=== PATIENT | female | born 1965 | race Caucasian/White ===

== ENCOUNTER 2016-07-23 12:48 | Inpatient (IN) | payer OTHER ==
[~2016-07-23] VITALS: Ht 165.1 cm; Wt 62.1 kg
[2016-07-23] VITALS (8 sets, daily range): BP systolic 81–105; BP diastolic 52–64; PULSE 105–134; RESP 16–24; TEMP 98.3–101.3; O2SAT 90–95
[~2016-07-23 12:48] MED LIST: ALPR.25 PO; DEXA4TAB PO; DOCU1CAP39 PO; OXYC-392 PO
[2016-07-23] MEDS ORDERED: SODIUM CHLORIDE 0.9% FLUSH 5 ML FLUSH IVF PRN (13:00)
--- NOTE | 2016-07-23 13:09 | PD ---
HPI Chief Complaint: abdominal pain Time Seen by Provider: 13:04 Travel History International Travel<30 days: No Contact w/Intl Traveler<30days: No History of Present Illness HPI Patient comes emergency Department complaining of abdominal pain that began yesterday. Patient describes pain as crampy like in nature throughout her abdomen. Patient's associated nausea with this but denies any vomiting. Patient is uncertain last time she had a normal bowel movement states she does not remember. Denies any known fevers, chest pain, or shortness of breath. Patient is uncertain the last time she had chemotherapy or radiation. PFSH Past Medical History Cancer: Yes (breast cancer ) Cardiovascular Problems: No Chemotherapy: Yes (On Herceptin until November 2015) Diabetes: No Genitourinary: No Immune Disorder: No Musculoskeletal: No Neurologic: Yes (Admitted 04/29/16 with altered mental status, brain mets.) Psychiatric: No Reproductive: Yes (Breat cancer) Respiratory: No Radiation Therapy: No Thyroid Disease: No Past Surgical History AICD: No Arteriovenous Shunt: No Insulin Pump: No Joint Replacement: No Pacemaker: No Social History Alcohol Use: Yes (occasionally ) Tobacco Use: No Substance Use: No Allergies-Medications (Allergen,Severity, Reaction): Coded Allergies: Penicillin (Verified Allergy, Intermediate, Rash, 06/19/16) Reported Meds & Prescriptions Reported Meds & Active Scripts Active Dok (Docusate Sodium) 100 Mg Cap 100 Mg PO TID PRN Oxycodone (Oxycodone HCl) 5 Mg Tab 5 Mg PO Q8H Dexamethasone 4 Mg Tab 4 Mg PO Q8HR 15 Days Discuss tapering down this medication with your Oncologist. Do not stop without talking to your oncologist. Xanax (Alprazolam) 0.25 Mg Tab 0.25 Mg PO Q8H PRN Review of Systems ROS Limitations: Poor Historian Except as stated in HPI: all other systems reviewed are Neg Physical Exam Exam Limitations: Poor Historian Narrative GENERAL: Well-developed, well nourished, in no acute distress, and non-ill appearing. SKIN: Warm and dry. HEAD: Atraumatic. Normocephalic. EYES: Pupils equal and round. EOMI. No scleral icterus. No injection or drainage. ENT: No nasal bleeding or discharge. Mucous membranes pink and moist. NECK: Trachea midline. Supple. No nuclear rigidity. CARDIOVASCULAR: Tachycardia rate and regular rhythm. No murmur appreciated. RESPIRATORY: No accessory muscle use. No respiratory distress. Clear to auscultation. Breath sounds equal bilaterally. GASTROINTESTINAL: Abdomen soft, non-tender, distended. Hepatic and splenic margins not palpable. Hypoactive bowel sounds 4. No pulsatile mass. MUSCULOSKELETAL: No obvious deformities. No clubbing. No cyanosis. No edema. NEUROLOGICAL: Awake and alert. No obvious cranial nerve deficits. Motor grossly within normal limits. Normal speech. Data Data Last Documented VS Vital Signs Date Time Temp Pulse Resp B/P Pulse Ox O2 Delivery O2 Flow Rate FiO2 07/23/16 13:23 98.3 124 19 95/64 94 Nasal Cannula 2 Orders Complete Blood Count With Diff (07/23/16 12:57) Comprehensive Metabolic Panel (07/23/16 12:57) Lipase (07/23/16 12:57) Prothrombin Time / Inr (Pt) (07/23/16 12:57) Act Partial Throm Time (Ptt) (07/23/16 12:57) Urinalysis - C+S If Indicated (07/23/16 12:57) Ct Abd/Pel W Iv Contrast(Rout) (07/23/16 12:57) Iv Access Insert/Monitor (07/23/16 12:57) Ecg Monitoring (07/23/16 12:57) Oximetry (07/23/16 12:57) Sodium Chloride 0.9% Flush (Ns Flush) (07/23/16 13:00) Electrocardiogram (07/23/16 12:57) Type And Screen (07/23/16 13:00) Lactic Acid (07/23/16 13:00) Ondansetron Inj (Zofran Inj) (07/23/16 13:15) Sodium Chlor 0.9% 1000 Ml Inj (Ns 1000 M (07/23/16 13:15) Pantoprazole Inj (Protonix Inj) (07/23/16 13:15) Pantoprazole Inj (Protonix Inj) (07/23/16 13:15) Sodium Chlor 0.9% 1000 Ml Inj (Ns 1000 M (07/23/16 14:00) Sodium Chlor 0.9% 1000 Ml Inj (Ns 1000 M (07/23/16 14:00) Ckmb (Isoenzyme) Profile (07/23/16 13:54) Troponin I (1/31/17 13:54) Blood Culture (07/23/16 13:54) Potassium Chloride (Kcl) (07/23/16 14:00) C Diff Toxin Pcr (07/23/16 14:18) Metronidazole 500 Mg Inj (Flagyl 500 Mg (07/23/16 14:30) Morphine Inj (Morphine Inj) (07/23/16 15:15) Ondansetron Inj (Zofran Inj) (07/23/16 15:15) Iohexol 350 Inj (Omnipaque 350 Inj) (07/23/16 15:21) Cefepime Inj (Maxipime Inj) (07/23/16 15:42) Azithromycin (Zithromax) (07/23/16 15:42) Admit Order (Ed Use Only) (07/23/16 16:35) Labs Laboratory Tests Test 07/23/16 07/23/16 13:15 15:00 White Blood Count 11.6 TH/MM3 Red Blood Count 4.24 MIL/MM3 Hemoglobin 14.3 GM/DL Hematocrit 41.3 % Mean Corpuscular Volume 97.4 FL Mean Corpuscular Hemoglobin 33.7 PG Mean Corpuscular Hemoglobin 34.6 % Concent Red Cell Distribution Width 22.6 % Platelet Count 146 TH/MM3 Mean Platelet Volume 8.0 FL Neutrophils (%) (Auto) 75.6 % Lymphocytes (%) (Auto) 13.5 % Monocytes (%) (Auto) 10.1 % Eosinophils (%) (Auto) 0.4 % Basophils (%) (Auto) 0.4 % Neutrophils # (Auto) 8.8 TH/MM3 Lymphocytes # (Auto) 1.6 TH/MM3 Monocytes # (Auto) 1.2 TH/MM3 Eosinophils # (Auto) 0.0 TH/MM3 Basophils # (Auto) 0.0 TH/MM3 CBC Comment AUTO DIFF Differential Total Cells 100 Counted Neutrophils % (Manual) 85 % Lymphocytes % 6 % Monocytes % 5 % Neutrophils # (Manual) 10.3 TH/MM3 Myelocytes 4 % Differential Comment FINAL DIFF MANUAL Platelet Estimate LOW Platelet Morphology Comment NORMAL Prothrombin Time 14.0 SEC Prothromb Time International 1.3 RATIO Ratio Activated Partial 27.4 SEC Thromboplast Time Sodium Level 138 MEQ/L Potassium Level 3.0 MEQ/L Chloride Level 104 MEQ/L Carbon Dioxide Level 20.8 MEQ/L Anion Gap 13 MEQ/L Blood Urea Nitrogen 19 MG/DL Creatinine 0.68 MG/DL Estimat Glomerular Filtration 91 ML/MIN Rate Random Glucose 124 MG/DL Lactic Acid Level 2.2 mmol/L Calcium Level 7.7 MG/DL Total Bilirubin 2.0 MG/DL Aspartate Amino Transf 23 U/L (AST/SGOT) Alanine Aminotransferase 29 U/L (ALT/SGPT) Alkaline Phosphatase 65 U/L Total Creatine Kinase 19 U/L Troponin I 0.07 NG/ML Total Protein 5.8 GM/DL Albumin 2.8 GM/DL Lipase 130 U/L Blood Type AB POSITIVE Antibody Screen NEGATIVE Urine Color YELLOW Urine Turbidity HAZY Urine pH 5.5 Urine Specific [place] 1.029 Urine Protein 100 mg/dL Urine Glucose (UA) NEG mg/dL Urine Ketones NEG mg/dL Urine Occult Blood SMALL Urine Nitrite NEG Urine Bilirubin NEG Urine Urobilinogen LESS THAN 2.0 MG/DL Urine Leukocyte Esterase NEG Urine RBC 1 /hpf Urine WBC 2 /hpf Urine Squamous Epithelial <1 /hpf Cells Urine Bacteria RARE /hpf Urine Mucus FEW /lpf Microscopic Urinalysis Comment CULT NOT INDICATED MDM Medical Decision Making Medical Screen Exam Complete: Yes Emergency Medical Condition: Yes Interpretation(s) EKG reviewed by Dr. Willard, shows sinus tachycardia with ventricular rate of 125. No STEMI. Differential Diagnosis Small bowel obstruction, ileus, necrotic bowel, GI bleed, electrolyte abnormality, dehydration, other Narrative Course 1412 patient's mother now at bedside reports patient began complaining of abdominal pain yesterday and started having diarrhea. Mother isn't certain exactly how many episodes of diarrhea the patient had. Mother states patient was able to make it to the toilet for the first 3 episodes of diarrhea, but then became too weak to make it to the bathroom. 1432 patient reassessed found resting in bed in no acute distress. Denies any pain currently. 1505 patient reassess complaining of nausea and worsening abdominal pain. Patient was seen and examined. Laboratory and radiological studies obtained and reviewed. Patient given IV fluid as well as IV antibiotics. Discussed patient with Dr. Willard, who saw and evaluate the patient and is in agreement with plan of care and disposition. Discussed all findings and plan care of patient was agreeable for admission. All questions were answered. Procedures Procedure Narrative Sample was obtained from patient's soiled depends appears melena in color. Stool specimen applied and test interpreted between 1 and 3 minutes of application and the result was positive. Internal Controls: Both positive and negative controls were validated. scrap shear operator was present during this exam. Physician Communication Physician Communication [phone] Mares, who is agreeable to admit the patient. Diagnosis Primary Impression: Sepsis Qualified Code: A41.9 - Sepsis, due to unspecified organism Additional Impressions: Pneumonia Qualified Code: J18.9 - Pneumonia of both lower lobes due to infectious organism GI bleeding Qualified Code: K92.2 - Gastrointestinal hemorrhage, unspecified gastrointestinal hemorrhage type Elevated troponin Hypokalemia Admitting Information Admitting Physician Requests: Admit Condition: Stable Tre De La Cruz Jul 23, 2016 13:09
[2016-07-23] MEDS ORDERED: SODIUM CHLOR 0.9% 1000 ML INJ 1,000 ML IV ONE ×3 (13:15→14:00)
[2016-07-23] MEDS ORDERED: PANTOPRAZOLE INJ 80 MG in SODIUM CHLORIDE 0.9% INJ 35 ML IV ONE (13:15)
[2016-07-23] MEDS ORDERED: ONDANSETRON HCL 4 MG/2 ML VIAL IV PUSH ONE ×2 (13:15→15:15)
[2016-07-23 13:26] LABS: AUTOMATED NEUTROPHIL # 8.8 TH/MM3 (1.8-7.7); BASOPHIL % 0.4 % (0.0-2.0); EOSINOPHIL % 0.4 % (0.0-4.0); HEMATOCRIT 41.3 % (35.0-46.0); LYMPH % 13.5 % (9.0-44.0); LYMPHOCYTE # 1.6 TH/MM3 (1.0-4.8); MEAN CELL VOLUME 97.4 FL (80.0-100.0); MEAN CORPUSCULAR HEMOGLOBIN 33.7 PG (27.0-34.0); MEAN CORPUSCULAR HGB CONC 34.6 % (32.0-36.0); MONO % 10.1 % (0.0-8.0); NEUT % 75.6 % (16.0-70.0); PLATELET COUNT 146 TH/MM3 (150-450); RED BLOOD COUNT 4.24 MIL/MM3 (4.00-5.30); RED CELL DISTRIBUTION WIDTH 22.6 % (11.6-17.2); WHITE BLOOD COUNT 11.6 TH/MM3 (4.0-11.0)
[2016-07-23 13:35] LABS: HEMO FLAGS AUTO DIFF
[2016-07-23 13:37] LABS: APTT (PATIENT) 27.4 SEC (24.3-30.1); INTERNATIONAL NORMALIZED RATIO 1.3 RATIO
[2016-07-23 13:44] LABS: ANION GAP 13 MEQ/L (5-15); AST (GOT) 23 U/L (15-37); BICARBONATE 20.8 MEQ/L (21.0-32.0); BLOOD UREA NITROGEN 19 MG/DL (7-18); CHLORIDE 104 MEQ/L (98-107); GLOMERULAR FILTRATION RATE 91 ML/MIN (>89); SODIUM (NA) 138 MEQ/L (136-145)
[2016-07-23 13:47] LABS: ALKALINE PHOSPHATASE 65 U/L (45-117); ALT (GPT) 29 U/L (10-53)
[2016-07-23] MEDS ORDERED: POTASSIUM CHLORIDE 20 MEQ CONTROLLED RELEASE TAB PO ONE (14:00)
[2016-07-23 14:21] LABS: MYELOCYTES 4 % (0-0); NEUTROPHIL # MANUAL DIFF 10.3 TH/MM3 (1.8-7.7); POLYS (SEG NEUTROPHILS) 85 % (16-70); WBC DIFF SAMPLE 100
[2016-07-23 14:23] LABS: PLATELET ESTIMATE SMEAR LOW (NORMAL); PLATELET MORPHOLOGY NORMAL (NORMAL); SCAN/DIFF FINAL DIFF MANUAL
[2016-07-23] MEDS ORDERED: metroNIDAZOLE 500 MG INJ 100 ML IV ONE (14:30)
[2016-07-23] MEDS ORDERED: MORPHINE SULFATE 4 MG/ML INJ IV PUSH ONE (15:15)
[2016-07-23 15:20] LABS: BACTERIA, URINE RARE /hpf; BLOOD, URINE SMALL (NEG); COMMENT (UR) CULT NOT INDICATED; CULTURE IF INDICATED CULT NOT INDICATED; GLUCOSE,URINE NEG (NEG); KETONE, URINE NEG (NEG); MUCUS URINE FEW /lpf (OCC); NITRITE,URINE NEG (NEG); PH, URINE 5.5 (5.0-8.5); SQUAMOUS EPITHELIAL CELL URINE <1 /hpf (0-5); URINE COLOR YELLOW (YELLW/STRAW)
[2016-07-23] MEDS ORDERED: IOHEXOL 350 MG/ML 10 ML VIAL (for RAD DIAG) IV ONE (15:21)
--- NOTE | 2016-07-23 15:41 | RADRPT ---
EXAM DATE/TIME: 07/23/2016 15:22 [facility] COMPARISON: CT ABDOMEN & PELVIS W CONTRAST, April 30, 2016, 11:02. INDICATIONS : Diffuse abdominal pain with nausea for 1 day; history of breast cancer with metastatic disease to the brain. IV CONTRAST: 98 cc Omnipaque 350 (iohexol) IV ORAL CONTRAST: No oral contrast ingested. RADIATION DOSE: 4.79 CTDIvol (mGy) MEDICAL HISTORY : Carcinoma, breast. Metastatic disease to brain. SURGICAL HISTORY : None. ENCOUNTER: Initial ACUITY: 1 day PAIN SCALE: 5/10 LOCATION: Diffuse abdomen/pelvis TECHNIQUE: Volumetric scanning of the abdomen and pelvis was performed. Using automated exposure control and ad justment of the mA and/or kV according to patient size, radiation dose was kept as low as reasonably achievable to obtain optimal diagnostic quality images. FINDINGS: LOWER LUNGS: Mild bibasilar infiltrates. LIVER: Homogeneous density without lesion. There is no dilation of the biliary tree. No calcified gallston es. SPLEEN: Normal size without lesion. PANCREAS: Within normal limits. KIDNEYS: Normal in size and shape. There is no mass, stone or hydronephrosis. ADRENAL GLANDS: Within normal limits. VASCULAR: There is no aortic aneurysm. BOWEL/MESENTERY: The stomach, small bowel, and colon demonstrate no acute abnormality. There is no free intraperitone al air or fluid. No inflammatory changes. ABDOMINAL WALL: Within normal limits. RETROPERITONEUM: There is no lymphadenopathy. BLADDER: No wall thickening or mass. REPRODUCTIVE: Within normal limits. INGUINAL: There is no lymphadenopathy or hernia. MUSCULOSKELETAL: There continues to be evidence of diffuse bony metastatic disease. Multiple sclerotic metastases are again demonstrated without significant change compared to the prior study. CONCLUSION: 1. Stable diffuse bony metastatic disease. 2. Mild bibasilar infiltrates. 3. Otherwise, unremarkable and stable CT abdomen/pelvis compared to the prior study. John Luu MD on July 23, 2016 at 15:36 Board Certified Radiologist. This report was verified electronically.
[2016-07-23] MEDS ORDERED: AZITHROMYCIN 250 MG TAB PO STA (15:42)
[2016-07-23] MEDS ORDERED: CEFEPIME INJ 2,000 MG in SODIUM CHLORIDE 0.9% INJ 100 ML IV STA (15:42)
[2016-07-23] MEDS: PANTOPRAZOLE INJ 80 MG in SODIUM CHLORIDE 0.9% INJ 100 ML IV SCH (16:52)
--- NOTE | 2016-07-23 17:00 | HHI.HP ---
[facility] No Primary Care Physician Admission Diagnosis sepsis, pneumonia, GI bleeding, metastatic cancer Diagnoses: Chief Complaint: Diarrhea Travel History International Travel<30 Days: No Contact w/Intl Traveler <30 Da: No Traveled to Known Affected Are: No History of Present Illness This is a 51-year-old female with recently diagnosed breast cancer stage IV metastatic to the brain, lungs, liver and to the thoracic and lumbar spine, presenting to the hospital with abdominal pain and diarrhea. Patient is a very poor historian, she cannot remember why she is here. Of note, patient has been getting chemotherapy but she doesn't know when the last time was. Presently, she denies of any abdominal pain. There is also no note of nausea and vomiting. Presently, she is very forgetful, she cannot even remember that she had diarrhea. Discussed with RN, she had 2 episodes of loose watery dark stools while at the emergency department. Review of Systems ROS Limitations: Poor Historian Past Family Social History Past Medical History Stage IV Breast CA Past Surgical History Tonsillectomy Reported Medications Dok (Docusate Sodium) 100 Mg Cap 100 Mg PO TID PRN Oxycodone (Oxycodone HCl) 5 Mg Tab 5 Mg PO Q8H Dexamethasone 4 Mg Tab 4 Mg PO Q8HR 15 Days Discuss tapering down this medication with your Oncologist. Do not stop without talking to your oncologist. Xanax (Alprazolam) 0.25 Mg Tab 0.25 Mg PO Q8H PRN Allergies: Coded Allergies: Penicillin (Verified Allergy, Intermediate, Rash, 06/19/16) Family History cannot be obtained, poor historian Social History No h/o DM or CAD Physical Exam Vital Signs Occasional alcohol. Negative for tobacco or drugs. Physical Exam Not in distress, metabolic, very forgetful, appears sick. PERRL, pale conjunctiva without injection, anicteric Nose without bleeding, airway patent Supple neck, no masses or thyromegaly, trachea midline Tachycardic, regular rhythm, no murmurs. Clear to auscultation and symmetric bilaterally, normal respiratory effort. Normal bowel sounds, soft, non-tender, mildly distended, no guarding. Extremities without clubbing, cyanosis, or edema. No rash of generalized distribution. Skin is warm and dry. Alert, awake, oriented to self but not to time. Moves extremities. Laboratory Laboratory Tests Test 07/23/16 07/23/16 13:15 15:00 White Blood Count 11.6 Red Blood Count 4.24 Hemoglobin 14.3 Hematocrit 41.3 Mean Corpuscular Volume 97.4 Mean Corpuscular Hemoglobin 33.7 Mean Corpuscular Hemoglobin 34.6 Concent Red Cell Distribution Width 22.6 Platelet Count 146 Mean Platelet Volume 8.0 Neutrophils (%) (Auto) 75.6 Lymphocytes (%) (Auto) 13.5 Monocytes (%) (Auto) 10.1 Eosinophils (%) (Auto) 0.4 Basophils (%) (Auto) 0.4 Neutrophils # (Auto) 8.8 Lymphocytes # (Auto) 1.6 Monocytes # (Auto) 1.2 Eosinophils # (Auto) 0.0 Basophils # (Auto) 0.0 CBC Comment AUTO DIFF Differential Total Cells 100 Counted Neutrophils % (Manual) 85 Lymphocytes % 6 Monocytes % 5 Neutrophils # (Manual) 10.3 Myelocytes 4 Differential Comment FINAL DIFF MANUAL Platelet Estimate LOW Platelet Morphology Comment NORMAL Prothrombin Time 14.0 Prothromb Time International 1.3 Ratio Activated Partial 27.4 Thromboplast Time Sodium Level 138 Potassium Level 3.0 Chloride Level 104 Carbon Dioxide Level 20.8 Anion Gap 13 Blood Urea Nitrogen 19 Creatinine 0.68 Estimat Glomerular Filtration 91 Rate Random Glucose 124 Lactic Acid Level 2.2 Calcium Level 7.7 Total Bilirubin 2.0 Aspartate Amino Transf 23 (AST/SGOT) Alanine Aminotransferase 29 (ALT/SGPT) Alkaline Phosphatase 65 Total Creatine Kinase 19 Troponin I 0.07 Total Protein 5.8 Albumin 2.8 Lipase 130 Blood Type AB POSITIVE Antibody Screen NEGATIVE Urine Color YELLOW Urine Turbidity HAZY Urine pH 5.5 Urine Specific [place] 1.029 Urine Protein 100 Urine Glucose (UA) NEG Urine Ketones NEG Urine Occult Blood SMALL Urine Nitrite NEG Urine Bilirubin NEG Urine Urobilinogen LESS THAN 2.0 Urine Leukocyte Esterase NEG Urine RBC 1 Urine WBC 2 Urine Squamous Epithelial <1 Cells Urine Bacteria RARE Urine Mucus FEW Microscopic Urinalysis Comment CULT NOT INDICATED Date/Time Procedure Status Source Growth 07/23/16 14:35 Aerobic Blood Culture Received Blood Peripheral Pending 07/23/16 14:35 Anaerobic Blood Culture Received Blood Peripheral Pending Result Diagram: 07/23/16 1315 07/23/16 1315 Imaging Last Impressions Abdomen/Pelvis CT 07/23/16 1257 Signed Impressions: Service Date/Time: Saturday, July 23, 2016 15:22 - CONCLUSION: 1. Stable diffuse bony metastatic disease. 2. Mild bibasilar infiltrates. 3. Otherwise, unremarkable and stable CT abdomen/pelvis compared to the prior study. John Luu MD Assessment and Plan Assessment and Plan This is a 51-year-old female with history of stage IV breast cancer presenting with abdominal pain and diarrhea Abdominal pain with diarrhea- patient with leukocytosis, also with dark stools, rule out GI bleed and infectious diarrhea. Send stool for culture and C. difficile. CT scan of the abdomen personally reviewed showed diffuse metastatic disease, but unremarkable abdomen otherwise. Mild bibasilar infiltrates. Start Flagyl for now, continue IVF. Occult blood positive. Continue Protonix. Rule out GI bleed-stool occult positive, hemoglobin is stable, monitor for now. You Protonix drip for now. Stage IV breast cancer-metastatic to liver, brain, thoracic and lumbar spine, lungs. Follow-up with oncology as outpatient Mild troponin elevation-troponin is 0.07, EKG personally reviewed showed sinus tachycardia, continue serial troponins and EKG. Patient denies any chest pain Bibasilar infiltrates lower lobes-could be from atelectasis, patient denies any shortness of breath, incentive spirometry, DuoNeb's. DVT prophylaxis: Pharmacological prophylaxis contraindicated until GI bleed is ruled out,SCDs for now Physician Certification 2 Midnight Certification Type: Admission for Inpatient Services Order for Inpatient Services The services are ordered in accordance with Medicare regulations or non- Medicare payer requirements, as applicable. In the case of services not specified as inpatient-only, they are appropriately provided as inpatient services in accordance with the 2-midnight benchmark. Estimated LOS (days): 2 days is the estimated time the patient will need to remain in the hospital, assuming treatment plan goals are met and no additional complications. Post-Hospital Plan: Home Shahida Mares MD Jul 23, 2016 16:59
[2016-07-23] MEDS ORDERED: [UNRECOGNIZED DRUG - CODE] ×2 (17:16→19:13)
[2016-07-23] MEDS ORDERED: XELO150T PO (17:16)
[2016-07-23] MEDS ORDERED: POTASSIUM CHLORIDE 10 MEQ CONTROLLED RELEASE TAB PO ONE (17:45)
[2016-07-23] MEDS ORDERED: RESP: ALBUTEROL 2.5 MG/IPRATROPIUM 0.5 MG NEB (PRN) NEB (17:45)
[2016-07-23] MEDS: metroNIDAZOLE 500 MG INJ 100 ML IV SCH (18:26)
[2016-07-23] MEDS ORDERED: RANI300T PO (21:44)
[2016-07-23] MEDS ORDERED: RANITIDINE HCL 150 MG TAB PO ONE (22:30)
[2016-07-23] MEDS: FAMOTIDINE 20 MG TAB PO SCH (22:36)
[2016-07-23] MEDS: ACETAMINOPHEN 325 MG TAB PO PRN (22:37)
[2016-07-23] MEDS: ONDANSETRON HCL 4 MG/2 ML VIAL IV PUSH PRN (22:40)
--- NOTE | 2016-07-23 22:47 | RADRPT ---
EXAM DATE/TIME: 07/23/2016 22:22 [facility] COMPARISON: No previous studies available for comparison. INDICATIONS : Fever. MEDICAL HISTORY : Carcinoma, breast. SURGICAL HISTORY : Infusaport. ENCOUNTER: Initial ACUITY: 1 day PAIN SCORE: 0/10 LOCATION: Bilateral chest FINDINGS: A single view of the chest demonstrates a right-sided [id number] entering into the right internal jugular approach with the tip overlying the right atrium. The heart size is within normal limits. The re is widening the superior mediastinum. There is increased density in the perihilar regions bilatera lly. There is elevation of the right hemidiaphragm. CONCLUSION: Increased density in the perihilar regions representing some degree of consolidation or atelectasis. Alex Soto MD on July 23, 2016 at 22:44 Board Certified Radiologist. This report was verified electronically.
[2016-07-23] MEDS: RESP: ALBUTEROL 2.5 MG/IPRATROPIUM 0.5 MG NEB (SCH) NEB (23:54)
[2016-07-24] VITALS (8 sets, daily range): BP systolic 87–102; BP diastolic 46–68; PULSE 91–113; RESP 16–18; TEMP 96.7–101.4; O2SAT 93–96
[2016-07-24] MEDS: metroNIDAZOLE 500 MG INJ 100 ML IV SCH ×3 (02:45→17:28)
[2016-07-24] MEDS: PANTOPRAZOLE INJ 80 MG in SODIUM CHLORIDE 0.9% INJ 100 ML IV SCH ×3 (02:45→19:00)
[2016-07-24 05:56] LABS: AUTOMATED NEUTROPHIL # 4.9 TH/MM3 (1.8-7.7); BASOPHIL % 0.5 % (0.0-2.0); EOSINOPHIL # 0.1 TH/MM3 (0-0.4); EOSINOPHIL % 2.2 % (0.0-4.0); HEMATOCRIT 29.7 % (35.0-46.0); LYMPH % 11.3 % (9.0-44.0); LYMPHOCYTE # 0.7 TH/MM3 (1.0-4.8); MEAN CELL VOLUME 97.7 FL (80.0-100.0); MEAN CORPUSCULAR HEMOGLOBIN 34.7 PG (27.0-34.0); MEAN CORPUSCULAR HGB CONC 35.5 % (32.0-36.0); MONO % 7.5 % (0.0-8.0); NEUT % 78.5 % (16.0-70.0); PLATELET COUNT 105 TH/MM3 (150-450); RED BLOOD COUNT 3.04 MIL/MM3 (4.00-5.30); RED CELL DISTRIBUTION WIDTH 23.6 % (11.6-17.2); WHITE BLOOD COUNT 6.3 TH/MM3 (4.0-11.0)
[2016-07-24 05:57] LABS: HEMO FLAGS AUTO DIFF
[2016-07-24 06:26] LABS: BICARBONATE 20.4 MEQ/L (21.0-32.0); MAGNESIUM 2.2 MG/DL (1.5-2.5); POTASSIUM 3.3 MEQ/L (3.5-5.1)
[2016-07-24 06:35] LABS: C. DIFF EPI 027 PRESUMPTIVE NEGATIVE (NEGATIVE); C. DIFF TOXIN PCR NEGATIVE (NEGATIVE)
[2016-07-24 06:44] LABS: CALCIUM-PROTEIN CORRECTED 7.7 MG/DL (8.5-10.1)
[2016-07-24 07:22] LABS: BANDS 1 % (0-6); EOSINOPHILS 2 % (0-4); METAMYELOCYTES 1 % (0-1); NEUTROPHIL # MANUAL DIFF 5.4 TH/MM3 (1.8-7.7); POLYS (SEG NEUTROPHILS) 83 % (16-70); WBC DIFF SAMPLE 100
[2016-07-24 07:23] LABS: KERATOCYTES OCC (NORMAL); PLATELET ESTIMATE SMEAR LOW (NORMAL); PLATELET MORPHOLOGY NORMAL (NORMAL); SCAN/DIFF FINAL DIFF MANUAL
[2016-07-24] MEDS: RESP: ALBUTEROL 2.5 MG/IPRATROPIUM 0.5 MG NEB (SCH) NEB ×3 (07:34→23:35)
[2016-07-24] MEDS: FAMOTIDINE 20 MG TAB PO SCH ×2 (09:04→22:46)
--- NOTE | 2016-07-24 10:47 | HHI.PR ---
Subjective Remarks f/u sepsis still with diarrhea x2 watery today, non-bloody, denies chest pain/sob/cough/ abdominal pain, no fever, patient is a poor historian Objective Vitals Vital Signs Date Time Temp Pulse Resp B/P Pulse Ox O2 Delivery O2 Flow Rate FiO2 07/24/16 09:33 105 07/24/16 09:12 98.1 113 16 87/46 95 07/24/16 04:00 96.7 91 16 98/68 96 07/23/16 23:55 92 Nasal Cannula 3.00 07/23/16 22:30 105 07/23/16 22:00 101.3 105 16 91/57 91 07/23/16 19:14 99.7 111 24 105/55 90 Nasal Cannula 4 07/23/16 18:28 111 81/52 07/23/16 17:16 108 18 86/54 95 Nasal Cannula 2 07/23/16 13:23 98.3 124 19 95/64 94 Nasal Cannula 2 07/23/16 13:06 98.3 134 21 104/53 92 I/O 07/23/16 07/23/16 07/23/16 07/24/16 07/24/16 07/24/16 07:00 15:00 23:00 07:00 15:00 23:00 Output Total 200 ml Balance -200 ml Output Urine Total 200 ml # Voids 2 1 Result Diagram: 07/24/16 0400 07/24/16 0400 Objective Remarks Not in distress, very forgetful, appears sick. PERRL, pale conjunctiva without injection, anicteric Nose without bleeding, airway patent Supple neck, no masses or thyromegaly, trachea midline Tachycardic, regular rhythm, no murmurs. Clear to auscultation and symmetric bilaterally, normal respiratory effort. Normal bowel sounds, soft, non-tender, mildly distended, no guarding. Extremities without clubbing, cyanosis, or edema. No rash of generalized distribution. Skin is warm and dry. Alert, awake, oriented to self but not to time. Moves extremities. A/P Assessment and Plan This is a 51-year-old female with history of stage IV breast cancer presenting with abdominal pain and diarrhea Abdominal pain with diarrhea - patient with leukocytosis but better, also with dark stools, rule out GI bleed and infectious diarrhea. CT scan of the abdomen personally reviewed showed diffuse metastatic disease, but unremarkable abdomen otherwise. Mild bibasilar infiltrates. Cont Flagyl for now, continue IVF. Occult blood positive. Continue Protonix. F/u stool studies and C diff assay. Rule out GI bleed-stool occult positive, hemoglobin decreased, monitor for now. Continue Protonix drip for now. Check H/H q12 Stage IV breast cancer-metastatic to liver, brain, thoracic and lumbar spine, lungs. Consult Oncology specially for prognosis. Mild troponin elevation-troponin is 0.07, EKG personally reviewed showed sinus tachycardia, Trop flat and has normalized. Patient denies any chest pain Bibasilar infiltrates lower lobes-could be from atelectasis, patient denies any shortness of breath, incentive spirometry, DuoNeb's. Hypocalcemia-replaced Hypokalemia-replaced DVT prophylaxis: Pharmacological prophylaxis contraindicated until GI bleed is ruled out,SCDs for now Discussed extensively with the patient's sister Zunilda, who sort of a greetings insinuated that patient should have a DNR/DNI order. I then spoke to the next of kin Irvin [phone], he is coming on Friday and would be willing to Dr. palliative care. He agreed the patient should be DNR/DNI at this point. He believes that she has suffered enough and agreed with Zunilda that patient has suffered enough and would not want to be resuscitated but he wants to continue to be aggressive with care for now until talking with the palliative care team on Friday DNR/DNI Discussed with RN I spent 35 minutes [id number] with the patient or on the brooke discussing the patient's disposition, prognosis and plan of care with his/her caregivers. Over half of time spent was devoted to counseling the patient regarding placement--- and coordinating care with caregivers and case management. Shahida Mares MD Jul 24, 2016 10:47
[2016-07-24] MEDS ORDERED: SODIUM CHLOR 0.9% 250 ML INJ 250 ML IV STA (10:51)
[2016-07-24] MEDS ORDERED: CALCIUM GLUCONATE INJ 1 GM in SODIUM CHLORIDE 0.9% INJ 100 ML IV ONE (11:00)
[2016-07-24] MEDS ORDERED: POTASSIUM CL 40 MEQ/30 ML LIQ UDC PO ONE (11:00)
[2016-07-24] MEDS: ACETAMINOPHEN 325 MG TAB PO PRN (13:13)
[2016-07-24] MEDS: SODIUM CHLOR 0.9% 1000 ML INJ 1,000 ML IV SCH (13:16)
[2016-07-24 15:31] LABS: REVIEW FLAG FINAL
--- NOTE | 2016-07-24 15:54 | EKG ---
Date Performed: 07/24/2016 Time Performed: 05:28:08 PTAGE: 51 years EKG: Sinus rhythm MODERATE INTRAVENTRICULAR CONDUCTION DELAY NONSPECIFIC T-WAVE ABNORMALITY Compared to prior tracing no significant change BORDERLINE ECG PREVIOUS TRACING : 07/23/2016 18.34 DOCTOR: Alberto Romero Interpretating Date/Time 07/24/2016 15:53:16
--- NOTE | 2016-07-24 15:54 | EKG ---
Date Performed: 07/23/2016 Time Performed: 18:34:57 PTAGE: 51 years EKG: SINUS TACHYCARDIA MODERATE INTRAVENTRICULAR CONDUCTION DELAY ST DEVIATION AND MODERATE T-WA VE ABNORMALITY, CONSIDER LATERAL ISCHEMIA Compared to prior tracing no significant change ABNORMAL EC G INTERPRETATION BASED ON A DEFAULT AGE OF 40 YEARS PREVIOUS TRACING : 07/23/2016 13.52 DOCTOR: Alberto Romero Interpretating Date/Time 07/24/2016 15:53:41
--- NOTE | 2016-07-24 15:54 | EKG ---
Date Performed: 07/23/2016 Time Performed: 23:27:22 PTAGE: 51 years EKG: SINUS TACHYCARDIA MODERATE INTRAVENTRICULAR CONDUCTION DELAY MODERATE T-WAVE ABNORMALITY, C ONSIDER LATERAL ISCHEMIA Compared to prior tracing no significant change ABNORMAL ECG PREVIOUS TRACING : 07/23/2016 18.34 DOCTOR: Alberto Romero Interpretating Date/Time 07/24/2016 15:53:33
--- NOTE | 2016-07-24 15:55 | EKG ---
Date Performed: 07/23/2016 Time Performed: 13:52:18 PTAGE: 51 years EKG: SINUS TACHYCARDIA MODERATE INTRAVENTRICULAR CONDUCTION DELAY ST DEVIATION AND MODERATE T-WA VE ABNORMALITY, CONSIDER LATERAL ISCHEMIA Compared to prior tracing no significant change ABNORMAL EC G INTERPRETATION BASED ON A DEFAULT AGE OF 40 YEARS NO PREVIOUS TRACING DOCTOR: Alberto Romero Interpretating Date/Time 07/24/2016 15:53:49
[2016-07-24 21:10] LABS: MEAN CORPUSCULAR HGB CONC 36.5 % (32.0-36.0)
[2016-07-24] MEDS: CALCIUM CARBONATE 500 MG CHEWABLE TAB CHEW SCH (22:46)
[2016-07-25] VITALS (8 sets, daily range): BP systolic 92–117; BP diastolic 50–72; PULSE 84–99; RESP 16–24; TEMP 96.9–100.1; O2SAT 90–98
[2016-07-25] MEDS: ONDANSETRON HCL 4 MG/2 ML VIAL IV PUSH PRN (01:34)
[2016-07-25] MEDS: metroNIDAZOLE 500 MG INJ 100 ML IV SCH ×2 (01:37→11:00)
[2016-07-25] MEDS ORDERED: ACETAMINOPHEN/HYDROcodone 325 MG/5 MG TAB PO ONE (03:15)
[2016-07-25] MEDS: SODIUM CHLOR 0.9% 1000 ML INJ 1,000 ML IV SCH ×3 (06:01→17:00)
[2016-07-25 06:43] LABS: AUTOMATED NEUTROPHIL # 3.7 TH/MM3 (1.8-7.7); BASOPHIL % 0.6 % (0.0-2.0); EOSINOPHIL # 0.1 TH/MM3 (0-0.4); EOSINOPHIL % 2.5 % (0.0-4.0); HEMATOCRIT 24.6 % (35.0-46.0); LYMPH % 10.1 % (9.0-44.0); LYMPHOCYTE # 0.5 TH/MM3 (1.0-4.8); MEAN CELL VOLUME 97.1 FL (80.0-100.0); MEAN CORPUSCULAR HEMOGLOBIN 35.5 PG (27.0-34.0); MONO % 9.7 % (0.0-8.0); NEUT % 77.1 % (16.0-70.0); PLATELET COUNT 108 TH/MM3 (150-450); RED BLOOD COUNT 2.53 MIL/MM3 (4.00-5.30); RED CELL DISTRIBUTION WIDTH 23.9 % (11.6-17.2); WHITE BLOOD COUNT 4.8 TH/MM3 (4.0-11.0)
--- NOTE | 2016-07-25 06:43 | MB ---
cc: EDUAR MARES MD, RUBY ANNE E. M.D. DATE OF CONSULTATION 07/24/2016 DATE OF [address] Mares CHIEF COMPLAINT Dr. Mares requested consultation for Mrs. Staton regarding metastatic HER2/vannesa over expressing breast cancer. HISTORY OF PRESENT ILLNESS Mrs. Staton is a 51-year-old woman well-known patient to Dr. Power Lynch. She was seen in consultation by Dr. Luis Curry on May 03, 2016. She presented with inflammatory breast cancer in August of 2014. Evaluation showed her to have metastatic disease on presentation with bilateral breast adenopathy, liver and bony metastatic disease. She was started on chemotherapy and completed eight cycles which included Herceptin. 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 MRI of the brain from April 29, 2016 showed numerous enhancing intra-axial masses seen in both cerebral hemisphere compatible with metastatic disease. She came under the care of Dr. Matos. She is receiving radiation therapy to the brain. Dr. Matos' follow-up note from May 03 shows completion of the whole brain radiation May 14, 2016. Since completion of radiation. She was placed on Tykerb and Xeloda. She has been looking to reestablish with another medical oncologist since Dr. Lynch leaving [facility] oncology practice. She has not been established with anyone yet. The referral has been placed by Dr. Matos July 03, 2016. It is not clear who was monitoring her symptoms and toxicity related to the oral chemotherapy agents. She presented with diarrhea worsening over the past week. She was becoming more dehydrated and weak even getting up from a sitting position. Her interview took place in the presence of her mother and two friends who have been caring for her at home up. Her is in [place]. They live in the [facility], but keep home also in [place] where her works. Presently, her is in [place] attending to matters. However, she is well cared for by her caregivers. She is well loved and supported. Her history is complemented by her family members as she is quite forgetful and unsure when she answers. REVIEW OF SYSTEMS She is sleepy, but arousable. She understands and answers questions. She denies any vision changes. She has no headache at present. At the time of the consultation, she was pain free. She has had a great deal of pain in the back. The patient staging evaluation was not reviewed, however a CT scan of the abdomen and pelvis shows stable diffuse metastatic disease, mild bibasilar infiltrates. There is no ascites. There is no bowel wall thickening. The C. diff evaluation was negative. She is noted, however, to have a decrease in hemoglobin. Her hemoglobin on admission was 14.3 and decreased down to 9.6. Her platelet count was 141 and decreased to 104. Corrected calcium is decreased at 6.4. She received Denosumab. Potassium is also low. She has no nausea or vomiting. She is uncertain of what she wishes to do at present. PAST MEDICAL HISTORY 1. Inflammatory breast cancer. 2. 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 HER2/vannesa over expressing breast cancer PAST SURGICAL HISTORY 1. Tonsillectomy 2. Port placement PAST SURGICAL HISTORY Father had colon cancer. One brother is healthy. She has no children. She is . Her is currently in [place] attending to [employer]. SOCIAL HISTORY She denies any tobacco, alcohol or illicit drug use. ALLERGIES PENICILLIN CURRENT MEDICATIONS 1. Pepcid 2. Ondansetron p.r.n. 3. Duo nebs 4. Metronidazole PHYSICAL EXAMINATION Temperature max 101.4, heart rate 97.8, heart rate 106, blood pressure 102/58. GENERAL: Mrs. Staton is a well-developed, well-nourished young woman who looks tired. HEAD, EYES, EARS, NOSE, AND THROAT: She has Trinity's appearance. She has alopecia. Her pupils are round and reactive. Oropharynx is dry. NECK: Supple. LUNGS: Clear anteriorly. CARDIOVASCULAR: Exam reveals a tachycardia. ABDOMEN: Distended. Bowel sounds present. EXTREMITIES: Lower extremities with no edema. NEUROLOGIC: Exam is nonfocal. She moves all four extremities. LABS Calcium is 6.4, hemoglobin 9.6 and platelet count 105,000, PTT mildly prolonged at 14.0 seconds. ASSESSMENT/PLAN Mrs. Staton is a 51-year-old woman with metastatic HER2/vannesa over expressing breast cancer. She has progressed on Herceptin containing regimens. She is currently on Xeloda and Tykerb. 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 She has some neurocognitive dysfunction I suspect is related to the radiation, however, she only completed whole brain radiation in April. I am unable to exclude the contribution of metabolic abnormality to the above. We discussed continuing to support her. We will monitor her hemoglobin. Pharmacologic DVT prophylaxis will be placed on hold until her hemoglobin stabilized. There is no overt sign of bleeding. Her abdomen is distended. CT scan is negative for any particular pathology. We discussed holding her chemotherapy both Xeloda and the Tykerb at present until toxicity has resolved and her performance status improves. We will correct the decreased calcium with oral calcium and calcitriol. We will perform Doppler ultrasound of the lower extremity to make sure there is no deep vein thromboses. I am concerned about the tachycardia as a response to the anemia, i.e., bleeding versus venous thromboembolic event. The cytopenias may be related to the chemotherapy. Lastly, after a lengthy discussion, they were agreeable to a consultation with palliative care. Her questions were answered to her satisfaction. MD NELLY Humphrey/STEFANIA /6:04 PM /6:30 AM
[2016-07-25 06:54] LABS: BICARBONATE 20.8 MEQ/L (21.0-32.0)
[2016-07-25 06:56] LABS: HEMO FLAGS AUTO DIFF
[2016-07-25 07:02] LABS: APTT (PATIENT) 28.6 SEC (24.3-30.1); INTERNATIONAL NORMALIZED RATIO 1.3 RATIO; PROTHROMBIN TIME - PATIENT 14.5 SEC (9.8-11.6)
[2016-07-25 07:11] LABS: CALCIUM-PROTEIN CORRECTED 7.6 MG/DL (8.5-10.1)
[2016-07-25 07:19] LABS: POTASSIUM 2.9 MEQ/L (3.5-5.1)
[2016-07-25] MEDS: CALCIUM CARBONATE 500 MG CHEWABLE TAB CHEW SCH ×2 (08:04→21:31)
[2016-07-25] MEDS: FAMOTIDINE 20 MG TAB PO SCH ×2 (08:04→21:31)
[2016-07-25] MEDS: PANTOPRAZOLE INJ 80 MG in SODIUM CHLORIDE 0.9% INJ 100 ML IV SCH ×2 (08:07→15:15)
[2016-07-25 08:15] LABS: BANDS 4 % (0-6); EOSINOPHILS 1 % (0-4); METAMYELOCYTES 2 % (0-1); MYELOCYTES 1 % (0-0); NEUTROPHIL # MANUAL DIFF 3.9 TH/MM3 (1.8-7.7); PLATELET ESTIMATE SMEAR LOW (NORMAL); PLATELET MORPHOLOGY NORMAL (NORMAL); POLYS (SEG NEUTROPHILS) 74 % (16-70); SCAN/DIFF FINAL DIFF MANUAL; WBC DIFF SAMPLE 100
[2016-07-25] MEDS ORDERED: POTASSIUM CHLOR 40 MEQ PREMIX 100 ML IV ONE (08:15)
[2016-07-25] MEDS: RESP: ALBUTEROL 2.5 MG/IPRATROPIUM 0.5 MG NEB (SCH) NEB ×2 (09:03→16:02)
--- NOTE | 2016-07-25 09:33 | PD.ONC.PN ---
Subjective Subjective Remarks Tmax 99.4 overnight. Pt resting in bed getting IV placed by vascular team. When asked how she is doing she states "I don't know." However she denies pain, SOB or fatigue. She answers questions with simple yes/no. Per RN she continues to have diarrhea. Objective Data Date Time Temp Pulse Resp B/P Pulse Ox O2 Delivery O2 Flow Rate FiO2 07/25/16 09:00 98 Nasal Cannula 3.00 07/25/16 08:35 97.8 84 16 117/64 94 07/25/16 05:30 99.4 92 16 92/53 93 07/25/16 00:45 97.3 99 16 97/50 93 07/24/16 21:00 98.5 98 16 92/56 93 07/24/16 16:00 97.8 106 16 102/58 96 07/24/16 15:21 95 Nasal Cannula 3.00 07/24/16 12:00 101.4 106 18 98/58 94 07/24/16 09:33 105 07/25/16 07/25/16 07/25/16 07:00 15:00 23:00 Intake Total 1417 ml Output Total 300 ml Balance 1117 ml Result Diagram: 07/25/16 0500 07/25/16 0500 Laboratory Results Laboratory Tests Test 07/24/16 07/25/16 15:03 05:00 Hemoglobin 9.6 GM/DL 9.0 GM/DL Hematocrit 27.0 % 24.6 % White Blood Count 4.8 TH/MM3 Red Blood Count 2.53 MIL/MM3 Mean Corpuscular Volume 97.1 FL Mean Corpuscular Hemoglobin 35.5 PG Mean Corpuscular Hemoglobin 36.5 % Concent Red Cell Distribution Width 23.9 % Platelet Count 108 TH/MM3 Mean Platelet Volume 7.9 FL Neutrophils (%) (Auto) 77.1 % Lymphocytes (%) (Auto) 10.1 % Monocytes (%) (Auto) 9.7 % Eosinophils (%) (Auto) 2.5 % Basophils (%) (Auto) 0.6 % Neutrophils # (Auto) 3.7 TH/MM3 Lymphocytes # (Auto) 0.5 TH/MM3 Monocytes # (Auto) 0.5 TH/MM3 Eosinophils # (Auto) 0.1 TH/MM3 Basophils # (Auto) 0.0 TH/MM3 CBC Comment AUTO DIFF Differential Total Cells 100 Counted Neutrophils % (Manual) 74 % Band Neutrophils % 4 % Lymphocytes % 7 % Monocytes % 11 % Eosinophils % 1 % Neutrophils # (Manual) 3.9 TH/MM3 Metamyelocytes 2 % Myelocytes 1 % Differential Comment FINAL DIFF MANUAL Platelet Estimate LOW Platelet Morphology Comment NORMAL Prothrombin Time 14.5 SEC Prothromb Time International 1.3 RATIO Ratio Activated Partial 28.6 SEC Thromboplast Time Fibrinogen 302 mg/dL Sodium Level 143 MEQ/L Potassium Level 2.9 MEQ/L Chloride Level 113 MEQ/L Carbon Dioxide Level 20.8 MEQ/L Anion Gap 9 MEQ/L Blood Urea Nitrogen 2 MG/DL Creatinine 0.23 MG/DL Estimat Glomerular Filtration 316 ML/MIN Rate Random Glucose 89 MG/DL Calcium Level 6.2 MG/DL Protein Corrected Calcium 7.6 MG/DL Total Protein 4.3 GM/DL Culture Results Microbiology Date/Time Procedure Status Source Growth 07/23/16 14:00 Aerobic Blood Culture - Preliminary Resulted Blood Peripheral NO GROWTH IN 1 DAY 07/23/16 14:00 Anaerobic Blood Culture - Preliminary Resulted Blood Peripheral NO GROWTH IN 1 DAY 07/23/16 14:35 Aerobic Blood Culture - Preliminary Resulted Blood Peripheral NO GROWTH IN 1 DAY 07/23/16 14:35 Anaerobic Blood Culture - Preliminary Resulted Blood Peripheral NO GROWTH IN 1 DAY 07/24/16 04:00 Rotavirus Antigen - Final Complete Stool Stool NEGATIVE - ROTAVIRUS ANTIGEN IS ABSEN... 07/24/16 04:00 - Final Complete Stool Stool NO ENTERIC PATHOGENS DETECTED BY PCR... 07/24/16 04:00 Cyclospora Exam Resulted Stool Stool Pending 07/24/16 04:00 Cryptosporidium Exam Resulted Stool Stool Pending 07/24/16 04:00 Stool Pus (ANDREA) - Final Resulted Stool Stool RARE WBC 07/24/16 04:00 Giardia Antigen (ANDREA) Resulted Stool Stool Pending Imaging Studies Last Impressions Abdomen/Pelvis CT 07/23/16 1257 Signed Impressions: Service Date/Time: Saturday, July 23, 2016 15:22 - CONCLUSION: 1. Stable diffuse bony metastatic disease. 2. Mild bibasilar infiltrates. 3. Otherwise, unremarkable and stable CT abdomen/pelvis compared to the prior study. John Luu MD Chest X-Ray 07/23/16 0000 Signed Impressions: Service Date/Time: Saturday, July 23, 2016 22:22 - CONCLUSION: Increased density in the perihilar regions representing some degree of consolidation or atelectasis. Alex Soto MD Administered Medications Medications (Trade) Dose Ordered Sig/Harsha Route PRN Reason Start Time Stop Time Status Last Admin Dose Admin Pantoprazole Sodium 80 mg/ Sodium Chloride 100 ml @ 10 mls/hr Q10H IV 07/23/16 13:15 07/25/16 08:07 Metronidazole (Flagyl 500 Mg Inj) 100 ml @ 100 mls/hr Q8H IV 07/23/16 17:45 07/25/16 01:37 Famotidine (Pepcid) 20 mg Q12HR PO 07/23/16 22:30 07/25/16 08:04 Ondansetron HCl (Zofran Inj) 4 mg Q6HR PRN IV PUSH nausea 07/23/16 22:30 07/25/16 01:34 Acetaminophen 650 mg 650 mg Q4H PRN PO fever >101 07/23/16 22:30 07/24/16 13:13 Sodium Chloride (NS 1000 ml Inj) 1,000 ml @ 100 mls/hr Q10H IV 07/24/16 11:00 07/25/16 06:01 Calcium Carbonate (Tums Chew) 500 mg Q12HR CHEW 07/24/16 21:00 07/25/16 08:04 Objective Remarks GENERAL: Chronically ill appearing female, lying in bed in no distress. SKIN: Warm and dry. Port in place to R chest. HEAD: Normocephalic. + Alopecia. EYES: No injection or drainage. NECK: Supple, trachea midline. LYMPHATIC: No adenopathy. CARDIOVASCULAR: Regular rate and rhythm without murmurs. RESPIRATORY: Breath sounds equal bilaterally. No accessory muscle use. GASTROINTESTINAL: Abdomen soft, non-tender, nondistended. EXTREMITIES: Generalized edema. NEUROLOGICAL: Awake and alert. Moving all extremities. PSYCHIATRIC: Flat affect. Assessment/Plan Problem List: (1) Metastatic breast cancer Status: Chronic Plan: -- Hold chemotherapy for now until toxicities resolve. -- Monitor labs, electrolytes -- Await results of BLE US. Hx/Workup: She was diagnosed with inflammatory breast cancer 15 unfortunately on presentation this was also noted metastatic with bilateral breast adenopathy , liver and bony metastasis. She completed 8 cycles of chemotherapy with Herceptin. 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 MRI brain showed numerous enhancing intra-axial masses seen in both cerebral hemispheres compatible with metastatic disease. She completed whole brain radiation on May 14, 2016. She has since been taking Tykerb and Xeloda. She has been having some toxicity related to these meds and has not been able to followup with anyone since the [facility] oncology practice has closed. Assessment 51 y/o female with a history of metastatic breast cancer who presents to the ER with c/o abdominal pain. Plan 1. Monitor CBC, electrolytes 2. Give 40 meq's K+ IV today to replace a level of 2.9. 3. Hold chemotherapy for now until toxicities resolve. 4. Await results of BLE US. 5. Supportive care. Attending Statement The exam, history, and the medical decision-making described in the above note were completed with the assistance of the mid-level provider. I reviewed and agree with the findings presented. I attest that I had a [id number] encounter with the patient on the same day, and personally performed and documented my assessment and findings in the medical record. Pt seen and examined. Having US of legs. Conversing but seems uncertain, states honestly that she can't remember. No acute complaints. Continue support. Milli Krueger Jul 25, 2016 09:33 Leticia Figueroa MD Jul 25, 2016 18:02
--- NOTE | 2016-07-25 10:05 | RADRPT ---
EXAM DATE/TIME: 07/25/2016 08:09 [facility] COMPARISON: No previous studies available for comparison. EXTERNAL COMPARISON : [facility], US LEG, BILATERAL VENOUS DOPPLER, March 15, 2015 INDICATIONS : Tachycardia, thrombocytopenia rule out DVT. MEDICAL HISTORY : Carcinoma, breast. Hypertension. Brain mets. Altered mental status. Depression. Anxiety. SURGICAL HISTORY : Tonsillectomy. Chemotherapy. ENCOUNTER: Initial ACUITY: 1 day PAIN SCORE: 0/10 LOCATION: Bilateral leg. TECHNIQUE: Venous ultrasound of the left and right leg was performed from the inguinal ligament to the proximal calf. Real-time, color Doppler and spectral tracing, compression and augmentation techniques were us ed. FINDINGS: RIGHT LEG: There is normal compressibility of the deep venous system from the inguinal region to the proximal ca lf. No echogenic clot is seen in the lumen of the common femoral, femoral, popliteal, and posterior tibial veins. There is a normal response of the venous system to proximal and distal augmentation an d respiration. LEFT LEG: There is normal compressibility of the deep venous system from the inguinal region to the proximal ca lf. No echogenic clot is seen in the lumen of the common femoral, femoral, popliteal, and posterior tibial veins. There is a normal response of the venous system to proximal and distal augmentation an d respiration. CONCLUSION: No DVT in either lower extremity Evangelist Baldwin MD on July 25, 2016 at 10:04 Board Certified Radiologist. This report was verified electronically.
--- NOTE | 2016-07-25 10:47 | PD.CONS ---
Consult Service Palliative Care Consult Requested By Dr. Figueroa . Primary Care Physician Keke Michaels MD . Reason for Consultation a. To assist with evaluation and management of symptoms including: Pain , Encephalopathy b. To assist medical decision maker(s) with: better understanding of current medical conditions; weighing benefits/burdens of medical treatment options; making medical treatment decisions. , HPI History of Present Illness This 51-year-old female was diagnosed with breast cancer in August 2014, and had disease metastatic to lymph nodes, bone, and kidneys at that time. This was found to be HER-2/vannesa overexpressing breast cancer, and she underwent chemotherapy including Herceptin. The says he was told that she was " in remission for a year" but then developed neurologic symptoms in April 2016 and was found to have multiple brain metastases. She then underwent whole brain radiation, completing that on 05/14/16. She followed up with her oncologist Dr. Lynch through the end of May, but then was to be referred to a new oncologist due to insurance changes but had never followed up. She had remained on some oral chemotherapeutic agents, and had gradually been getting weaker. Over the few days prior to admission, she seemed to have more confusion, and continued to lose strength, becoming (according to her close friend Zunilda) nonambulatory in the couple days prior to this admission. She was more confused and was finally brought to the emergency department on 07/23/15, complaining of abdominal pain and a couple days of watery diarrhea. In the emergency department, findings included: * Confusion, weakness * Initial temp 98.3, but later 101.3 * Pulse 124, respirations 19, blood pressure 95/69, oxygen saturation 94% on 2 L * White count 11.6, hemoglobin 14.3 * Sodium 138, creatinine 0.68, albumin 2.8 * Lactic acid 2.2 * The diarrhea was found to be Hemoccult positive * Chest x-ray consistent with bilateral infiltrates * Abdomen/pelvis CT scan revealed the bony metastases in the spine but no other obvious abnormalities The patient's tells me that the patient had an MRI done of the brain a couple weeks ago, and I have obtained that report from radiation oncology: MRI brain, 07/10/16: "Multiple enhancing masses throughout both cerebral and cerebellar hemispheres consistent with metastatic disease. The largest lesion on the right is within the thalamus measuring 1.7 x 1.3 cm, crossing the midline. The largest lesion on the left involves the occipital lobe, measuring 1.6 x 1.4 cm. There is associated edema with the lesions, mild. No midline shift." The patient was admitted, cultures were obtained, and she was started on antibiotics. Up to this point in time, the blood cultures and stool tests have been negative. The patient has denied abdominal pain in the past 24 hours, but remains quite forgetful and confused at times. Oncology Dr. Figueroa saw the patient last evening, and has consulted Palliative Care. The nurse reports that friends and the have made comments about "she has suffered enough, " and Palliative Care will now assist with symptom management and enter in discussions with the family and friends regarding prognosis and the benefits and burdens of the various treatment options. . Function/Cognitive Trajectory The patient has been losing strength over the past few months. She was able to ambulate on her own but with some difficulty getting up out of the recliner chair until the past week or so when she became too weak to ambulate. She has been confused and has no memory for recent events for the past couple months. . Review of Systems ROS Limitations: Clinical Condition, Altered Mental Status Constitutional: COMPLAINS OF: Fever Endocrine: DENIES: Polyuria Eyes: DENIES: Eye inflammation Ears, nose, mouth, throat: DENIES: Epistaxis Respiratory: DENIES: Cough, Shortness of breath Cardiovascular: DENIES: Chest pain Gastrointestinal: COMPLAINS OF: Diarrhea, DENIES: Bloody stools, Constipation Genitourinary: DENIES: Hematuria Musculoskeletal: COMPLAINS OF: Back pain, DENIES: Neck pain Integumentary: DENIES: Rash Hematologic/Lymphatics: DENIES: Lymphadenopathy Immunologic/Allergic: DENIES: Urticaria Neurologic: COMPLAINS OF: Abnormal gait, Headache, DENIES: Localized weakness Psychiatric: COMPLAINS OF: Confusion Past Family Social History Coded Allergies: Penicillin (Verified Allergy, Intermediate, Rash, 06/19/16) Past Medical History * Stage IV HER-2/vannesa overexpressing breast cancer, with bone, kidney, lymph node , and brain metastases * Pneumonia, sepsis * Encephalopathy, likely due to medications, sepsis, multiple brain metastases, and recent radiation * Hemoccult-positive diarrheal stool * Chronic back pain due to metastatic disease . Past Surgical History * Tonsillectomy * Port * Breast and lymph node biopsies . Reported Medications She did take oxycodone at home, and she has been on Xeloda and Tykerb for at least the past month. . Current Medications Medications (Trade) Dose Ordered Sig/Harsha Route Start Time Stop Time Status Last Admin IV Flush 2 ml 2 ml UNSCH PRN IVF 07/23/16 13:00 Pantoprazole Sodium 80 mg/ Sodium Chloride 100 ml @ 10 mls/hr Q10H IV 07/23/16 13:15 07/25/16 08:07 (Flagyl 500 Mg Inj) 100 ml @ 100 mls/hr Q8H IV 07/23/16 17:45 07/25/16 01:37 (Pepcid) 20 mg Q12HR PO 07/23/16 22:30 07/25/16 08:04 (Zofran Inj) 4 mg Q6HR PRN IV PUSH 07/23/16 22:30 07/25/16 01:34 Acetaminophen 650 mg 650 mg Q4H PRN PO 07/23/16 22:30 07/24/16 13:13 (NS 1000 ml Inj) 1,000 ml @ 100 mls/hr Q10H IV 07/24/16 11:00 07/25/16 06:01 Calcium Carbonate 500 mg 500 mg Q12HR CHEW 07/24/16 21:00 07/25/16 08:04 (KCl 40 Meq Premix Inj) 100 ml @ 25 mls/hr ONCE ONCE IV 07/25/16 08:15 07/25/16 12:14 Family History Patient's father had colon cancer. . Substance Use Tobacco: None. Alcohol: None. Prescription med abuse: None. Illicits: None. . Psychosocial History The patient was born and raised in [place], but has lived in this area with her for quite some time. They had been returning to [place] because of their construction business, but now she stays here. Her mother and her close friend Zunilad are nearby or living with her. She has been to Irvin for 17 years, and she has no children. Irvin has a son and a daughter. 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 . Spiritual/Cultural Factors The patient has a Yazdanism background, but has been unaffiliated with any uatsdin or clergy in recent years. . Living Will: Never completed Health Care Surrogate: Never completed Durable Power of Gathering Machine Setter: Never completed Family/friends goals: The patient's friend Zunilda said "I think she has suffered enough." The patient's Irvin is considering hospice services, saying that the patient has been telling him the last month or 2 that she did not want to take any more chemotherapy and she just wanted to rest. Irvin and I will be meeting at 10 AM on Friday after he returns from [place] to discuss this further. . Ethical and Legal Issues The patient is consistently confused, and does not have capacity for decision making at this time. Her Irvin is the proxy decision-maker. There are no ethical issues that would impact her care or decision-making at this time. . Physical Exam Vital Signs Date Time Temp Pulse Resp B/P Pulse Ox O2 Delivery O2 Flow Rate FiO2 07/25/16 09:00 98 Nasal Cannula 3.00 07/25/16 08:35 97.8 84 16 117/64 94 07/25/16 05:30 99.4 92 16 92/53 93 07/25/16 00:45 97.3 99 16 97/50 93 07/24/16 21:00 98.5 98 16 92/56 93 07/24/16 16:00 97.8 106 16 102/58 96 07/24/16 15:21 95 Nasal Cannula 3.00 07/24/16 12:00 101.4 106 18 98/58 94 07/24/16 07/25/16 19:00 07:00 Intake Total 2599 ml 1417 ml Output Total 300 ml Balance 2599 ml 1117 ml Intake Oral 480 ml IV Total 2119 ml 1417 ml Output Urine Total 300 ml # Voids 4 # Bowel Movements 4 4 Exam CONSTITUTIONAL/GENERAL: This is a week patient, in no apparent distress. TUBES/LINES/DRAINS: Peripheral IV SKIN: No jaundice, rashes, or lesions. Ecchymoses on upper extremities. No wounds seen anteriorly. Skin temperature appropriate. Not diaphoretic. HEAD: Atraumatic. Normocephalic. Skin changes consistent with radiation. EYES: Pupils equal and round and reactive. Extraocular motions intact. No scleral icterus. No injection or drainage. Fundi not examined. ENT: Hearing grossly normal. Nose without bleeding or purulent drainage. Throat without visible erythema, exudates, masses, or lesions. NECK: Trachea midline. Supple, nontender. No palpable thyroid enlargement or nodularity. CARDIOVASCULAR: Regular rate and rhythm without murmurs, gallops, or rubs. No JVD. Peripheral pulses symmetric. RESPIRATORY/CHEST: Symmetric, unlabored respirations. A few scattered rhonchi bilateral. GASTROINTESTINAL: Abdomen soft, non-tender, nondistended. No hepato-splenomegaly , or palpable masses. No guarding. Bowel sounds present. GENITOURINARY: Without palpable bladder distension. MUSCULOSKELETAL: Extremities without clubbing, cyanosis, or edema. No joint tenderness or effusion noted. No calf tenderness. No mottling or clubbing. LYMPHATICS: No palpable cervical or supraclavicular adenopathy. NEUROLOGICAL: Awake and alert. Her speech is clear, but she is confused, disoriented. Follows simple commands. Moves all 4 extremities. PSYCHIATRIC: No obvious anxiety/depression. no apparent hallucinations or other psychotic thought process. . Diagnostic Tests Laboratory Laboratory Tests Test 07/23/16 07/23/16 07/23/16 07/23/16 13:15 15:00 18:05 19:15 White Blood Count 11.6 TH/MM3 (4.0-11.0) Red Blood Count 4.24 MIL/MM3 (4.00-5.30) Hemoglobin 14.3 GM/DL (11.6-15.3) Hematocrit 41.3 % (35.0-46.0) Mean Corpuscular Volume 97.4 FL (80.0-100.0) Mean Corpuscular Hemoglobin 33.7 PG (27.0-34.0) Mean Corpuscular Hemoglobin 34.6 % Concent (32.0-36.0) Red Cell Distribution Width 22.6 % (11.6-17.2) Platelet Count 146 TH/MM3 (150-450) Mean Platelet Volume 8.0 FL (7.0-11.0) Neutrophils (%) (Auto) 75.6 % (16.0-70.0) Lymphocytes (%) (Auto) 13.5 % (9.0-44.0) Monocytes (%) (Auto) 10.1 % (0.0-8.0) Eosinophils (%) (Auto) 0.4 % (0.0-4.0) Basophils (%) (Auto) 0.4 % (0.0-2.0) Neutrophils # (Auto) 8.8 TH/MM3 (1.8-7.7) Lymphocytes # (Auto) 1.6 TH/MM3 (1.0-4.8) Monocytes # (Auto) 1.2 TH/MM3 (0-0.9) Eosinophils # (Auto) 0.0 TH/MM3 (0-0.4) Basophils # (Auto) 0.0 TH/MM3 (0-0.2) CBC Comment AUTO DIFF Differential Total Cells 100 Counted Neutrophils % (Manual) 85 % (16-70) Lymphocytes % 6 % (9-44) Monocytes % 5 % (0-8) Neutrophils # (Manual) 10.3 TH/MM3 (1.8-7.7) Myelocytes 4 % (0-0) Differential Comment FINAL DIFF MANUAL Platelet Estimate LOW (NORMAL) Platelet Morphology Comment NORMAL (NORMAL) Prothrombin Time 14.0 SEC (9.8-11.6) Prothromb Time International 1.3 RATIO Ratio Activated Partial 27.4 SEC Thromboplast Time (24.3-30.1) Sodium Level 138 MEQ/L (136-145) Potassium Level 3.0 MEQ/L (3.5-5.1) Chloride Level 104 MEQ/L (98-107) Carbon Dioxide Level 20.8 MEQ/L (21.0-32.0) Anion Gap 13 MEQ/L (5-15) Blood Urea Nitrogen 19 MG/DL (7-18) Creatinine 0.68 MG/DL (0.50-1.00) Estimat Glomerular Filtration 91 ML/MIN (>89) Rate Random Glucose 124 MG/DL (74-106) Lactic Acid Level 2.2 mmol/L 0.9 mmol/L (0.4-2.0) (0.4-2.0) Calcium Level 7.7 MG/DL (8.5-10.1) Total Bilirubin 2.0 MG/DL (0.2-1.0) Aspartate Amino Transf 23 U/L (15-37) (AST/SGOT) Alanine Aminotransferase 29 U/L (10-53) (ALT/SGPT) Alkaline Phosphatase 65 U/L (45-117) Total Creatine Kinase 19 U/L (26-192) Troponin I 0.07 NG/ML 0.06 NG/ML (0.02-0.05) (0.02-0.05) Total Protein 5.8 GM/DL (6.4-8.2) Albumin 2.8 GM/DL (3.4-5.0) Lipase 130 U/L (73-393) Blood Type AB POSITIVE Antibody Screen NEGATIVE Urine Color YELLOW (YELLW/STRAW) Urine Turbidity HAZY (CLEAR) Urine pH 5.5 (5.0-8.5) Urine Specific [place] 1.029 (1.002-1.035) Urine Protein 100 mg/dL (NEG-TRACE) Urine Glucose (UA) NEG mg/dL (NEG) Urine Ketones NEG mg/dL (NEG) Urine Occult Blood SMALL (NEG) Urine Nitrite NEG (NEG) Urine Bilirubin NEG (NEG) Urine Urobilinogen LESS THAN 2.0 MG/DL (LESS THAN 2.0) Urine Leukocyte Esterase NEG (NEG) Urine RBC 1 /hpf (0-3) Urine WBC 2 /hpf (0-5) Urine Squamous Epithelial <1 /hpf (0-5) Cells Urine Bacteria RARE /hpf (NONE) Urine Mucus FEW /lpf (OCC) Microscopic Urinalysis Comment CULT NOT INDICATED Test 07/23/16 07/24/16 07/24/16 07/25/16 23:42 04:00 15:03 05:00 Troponin I 0.05 NG/ML (0.02-0.05) White Blood Count 6.3 TH/MM3 4.8 TH/MM3 (4.0-11.0) (4.0-11.0) Red Blood Count 3.04 MIL/MM3 2.53 MIL/MM3 (4.00-5.30) (4.00-5.30) Hemoglobin 10.5 GM/DL 9.6 GM/DL 9.0 GM/DL (11.6-15.3) (11.6-15.3) (11.6-15.3) Hematocrit 29.7 % 27.0 % 24.6 % (35.0-46.0) (35.0-46.0) (35.0-46.0) Mean Corpuscular Volume 97.7 FL 97.1 FL (80.0-100.0) (80.0-100.0) Mean Corpuscular Hemoglobin 34.7 PG 35.5 PG (27.0-34.0) (27.0-34.0) Mean Corpuscular Hemoglobin 35.5 % 36.5 % Concent (32.0-36.0) (32.0-36.0) Red Cell Distribution Width 23.6 % 23.9 % (11.6-17.2) (11.6-17.2) Platelet Count 105 TH/MM3 108 TH/MM3 (150-450) (150-450) Mean Platelet Volume 8.1 FL 7.9 FL (7.0-11.0) (7.0-11.0) Neutrophils (%) (Auto) 78.5 % 77.1 % (16.0-70.0) (16.0-70.0) Lymphocytes (%) (Auto) 11.3 % 10.1 % (9.0-44.0) (9.0-44.0) Monocytes (%) (Auto) 7.5 % (0.0-8.0) 9.7 % (0.0-8.0) Eosinophils (%) (Auto) 2.2 % (0.0-4.0) 2.5 % (0.0-4.0) Basophils (%) (Auto) 0.5 % (0.0-2.0) 0.6 % (0.0-2.0) Neutrophils # (Auto) 4.9 TH/MM3 3.7 TH/MM3 (1.8-7.7) (1.8-7.7) Lymphocytes # (Auto) 0.7 TH/MM3 0.5 TH/MM3 (1.0-4.8) (1.0-4.8) Monocytes # (Auto) 0.5 TH/MM3 0.5 TH/MM3 (0-0.9) (0-0.9) Eosinophils # (Auto) 0.1 TH/MM3 0.1 TH/MM3 (0-0.4) (0-0.4) Basophils # (Auto) 0.0 TH/MM3 0.0 TH/MM3 (0-0.2) (0-0.2) CBC Comment AUTO DIFF AUTO DIFF Differential Total Cells 100 100 Counted Neutrophils % (Manual) 83 % (16-70) 74 % (16-70) Band Neutrophils % 1 % (0-6) 4 % (0-6) Lymphocytes % 8 % (9-44) 7 % (9-44) Monocytes % 5 % (0-8) 11 % (0-8) Eosinophils % 2 % (0-4) 1 % (0-4) Neutrophils # (Manual) 5.4 TH/MM3 3.9 TH/MM3 (1.8-7.7) (1.8-7.7) Metamyelocytes 1 % (0-1) 2 % (0-1) Differential Comment FINAL DIFF FINAL DIFF MANUAL MANUAL Platelet Estimate LOW (NORMAL) LOW (NORMAL) Platelet Morphology Comment NORMAL NORMAL (NORMAL) (NORMAL) Keratocytes OCC (NORMAL) Stool C. difficile Toxin (PCR) NEGATIVE (NEGATIVE) Stl C. difficile Toxin PRESUMPTIVE Epiderm 027 NEGATIVE (NEGATIVE) Sodium Level 144 MEQ/L 143 MEQ/L (136-145) (136-145) Potassium Level 3.3 MEQ/L 2.9 MEQ/L (3.5-5.1) (3.5-5.1) Chloride Level 114 MEQ/L 113 MEQ/L (98-107) (98-107) Carbon Dioxide Level 20.4 MEQ/L 20.8 MEQ/L (21.0-32.0) (21.0-32.0) Anion Gap 10 MEQ/L (5-15) 9 MEQ/L (5-15) Blood Urea Nitrogen 9 MG/DL (7-18) 2 MG/DL (7-18) Creatinine 0.31 MG/DL 0.23 MG/DL (0.50-1.00) (0.50-1.00) Estimat Glomerular Filtration 224 ML/MIN 316 ML/MIN Rate (>89) (>89) Random Glucose 100 MG/DL 89 MG/DL (74-106) (74-106) Calcium Level 6.4 MG/DL 6.2 MG/DL (8.5-10.1) (8.5-10.1) Protein Corrected Calcium 7.7 MG/DL 7.6 MG/DL (8.5-10.1) (8.5-10.1) Magnesium Level 2.2 MG/DL (1.5-2.5) Total Protein 4.5 GM/DL 4.3 GM/DL (6.4-8.2) (6.4-8.2) Myelocytes 1 % (0-0) Prothrombin Time 14.5 SEC (9.8-11.6) Prothromb Time International 1.3 RATIO Ratio Activated Partial 28.6 SEC Thromboplast Time (24.3-30.1) Fibrinogen 302 mg/dL (181-393) Result Diagram: 07/25/16 0500 07/25/16 0500 Microbiology Microbiology Date/Time Procedure Status Source Growth 07/23/16 14:00 Aerobic Blood Culture - Preliminary Resulted Blood Peripheral NO GROWTH IN 1 DAY 07/23/16 14:00 Anaerobic Blood Culture - Preliminary Resulted Blood Peripheral NO GROWTH IN 1 DAY 07/23/16 14:35 Aerobic Blood Culture - Preliminary Resulted Blood Peripheral NO GROWTH IN 1 DAY 07/23/16 14:35 Anaerobic Blood Culture - Preliminary Resulted Blood Peripheral NO GROWTH IN 1 DAY 07/24/16 04:00 Rotavirus Antigen - Final Complete Stool Stool NEGATIVE - ROTAVIRUS ANTIGEN IS ABSEN... 07/24/16 04:00 - Final Complete Stool Stool NO ENTERIC PATHOGENS DETECTED BY PCR... 07/24/16 04:00 Cyclospora Exam Resulted Stool Stool Pending 07/24/16 04:00 Cryptosporidium Exam Resulted Stool Stool Pending 07/24/16 04:00 Stool Pus (ANDREA) - Final Resulted Stool Stool RARE WBC 07/24/16 04:00 Giardia Antigen (ANDREA) Resulted Stool Stool Pending Imaging From [facility]: MRI brain, 07/10/16: "Multiple enhancing masses throughout both cerebral and cerebellar hemispheres consistent with metastatic disease. The largest lesion on the right is within the thalamus measuring 1.7 x 1.3 cm, crossing the midline. The largest lesion on the left involves the occipital lobe, measuring 1.6 x 1.4 cm. There is associated edema with the lesions, mild. No midline shift." . Last Impressions Lower Extremity Ultrasound 07/25/16 0000 Signed Impressions: Service Date/Time: July 08:09 - CONCLUSION: No DVT in either lower extremity Evangelist Baldwin MD Abdomen/Pelvis CT 07/23/16 1257 Signed Impressions: Service Date/Time: Saturday, July 23, 2016 15:22 - CONCLUSION: 1. Stable diffuse bony metastatic disease. 2. Mild bibasilar infiltrates. 3. Otherwise, unremarkable and stable CT abdomen/pelvis compared to the prior study. John Luu MD Chest X-Ray 07/23/16 0000 Signed Impressions: Service Date/Time: Saturday, July 23, 2016 22:22 - CONCLUSION: Increased density in the perihilar regions representing some degree of consolidation or atelectasis. Alex Soto MD Patient/Family Conference Family Conference Time (mins): 39 Family Conference Location: Telephone Issues Discussed: * Palliative care role, purpose, approach * Hospice care role, purpose, approach * Additional medical, psychosocial, and spiritual history * Patients general health, functional status, and cognitive changes in the months leading up to the current hospitalization * Patient/family understanding of the current medical problems * Patient/family understanding of prognosis * Patients goals of care as best understood from advance directives and/or conversations and/or values * Current medical treatment options and benefits/burdens of those options * Likely scenarios comparing ongoing aggressive care with a transition to comfort measures only * Questions answered to the best of my ability * Palliative care contact information provided Both the patients and the patient's close friend Zunilda feel that the time for hospice involvement may be near. . Assessment and Plan Disease Oriented Problem List: (1) stage IV, HER2/vannesa overexpressing breast cancer, with bone, kidney, lymph node, and brain metastases (2) pneumonia, sepsis (3) encephalopathy, likely due to medications, sepsis, multiple brain metastases , and recent radiation (4) chronic back pain due to metastatic disease (5) Hemoccult-positive diarrheal stool (6) anxiety, history of panic attacks Symptom Scale: (1) encephalopathy 0-10 Scale: 5 (persistent confusion, poor memory, poor insight) (2) pain 0-10 Scale: 3 (primarily back pain) (3) anxiety 0-10 Scale: Unable to quantify (intermittent) Pertinent Non-Medical Issues Psychosocial: From [place], for 17 years, no children but 2 stepchildren. Spiritual: Unaffiliated Yazdanism Legal: The patient is consistently confused, and does not have capacity for decision making at this time. Her Irvin is the proxy decision-maker. Ethical issues impacting care: None. . Important Contacts : Irvin [phone] Close friend: Zunilda Dean [phone] . Prognosis The patient is terminal. She has been declining recently, and now has an even more significant setback with pneumonia/sepsis. Her MRI from 07/10/16 confirms persistent/residual brain metastatic disease, and the CT scan on this admission again demonstrates bony metastases area. Certainly she is appropriate for hospice services if the goals transition to a focus on comfort. . Code Status: No Code Plan * DO NOT RESUSCITATE * GOALS: The patient is too confused and forgetful to discuss prognosis and goals of care at this time. The patient's friend Zunilda said "I think she has suffered enough." The patient's Irvin is considering hospice services, saying that the patient has been telling him the last month or 2 that she did not want to take any more chemotherapy and she just wanted to rest. Irvin and I will be meeting at 10 AM on Friday after he returns from [place] to discuss this further. * DECISION-MAKING: The patient is consistently confused, and does not have capacity for decision making at this time. Her Irvin is the proxy decision-maker. * From [facility]: MRI brain, 07/10/16: "Multiple enhancing masses throughout both cerebral and cerebellar hemispheres consistent with metastatic disease. The largest lesion on the right is within the thalamus measuring 1.7 x 1.3 cm, crossing the midline. The largest lesion on the left involves the occipital lobe, measuring 1.6 x 1.4 cm. There is associated edema with the lesions, mild. No midline shift." * SYMPTOMS: Her encephalopathy does not seem to be improving, but her treatment has just begun here the past couple days. Pain seems to be fairly well managed now. No new medication recommendations. * Palliative Care will continue to follow the patient during this hospitalization. * Irvin and I will be meeting at 10 AM on Friday after he returns from [place] to discuss Goals of Care further. . Time Spent Total Floor Time (mins): 78 Face to Face Time (mins): 46 >50% Counseling/Coord of Care: Yes Thank you for the opportunity to participate in the care of Ms. Staton. Attestation To help prompt me to consider important information that might be impacting today's encounter and assessment, information from prior notes written by myself or my colleagues may have been "brought forward" into today's note. My signature on this note, however, is an attestation that I personally performed the exam, history, and/or decision-making noted today, and, unless otherwise indicated, the interactions with patient, family, and staff as well as the review of records all occurred today. I also attest that the listed assessment and stated plan reflect my best clinical judgment today based on the combination of historical information, prior notes, and today's exam/ interactions. When time spent is documented, it refers only to time spent today by the signer, or if indicated, combined time spent today by collaborating physician/nurse practitioner. Jillian Chandler MD Jul 25, 2016 10:47
[2016-07-25] MEDS ORDERED: POTASSIUM CL 40 MEQ/30 ML LIQ UDC PO ONE (15:15)
--- NOTE | 2016-07-25 15:18 | HHI.PR ---
Subjective Remarks Follow-up for pneumonia Patient's shortness of breath about the same, afebrile, feels better today, she has more strength. still very forgetful. Discussed with patient's sister. Objective Vitals Vital Signs Date Time Temp Pulse Resp B/P Pulse Ox O2 Delivery O2 Flow Rate FiO2 07/25/16 13:08 84 07/25/16 12:00 96.9 94 16 109/68 91 07/25/16 09:00 98 Nasal Cannula 3.00 07/25/16 08:35 97.8 84 16 117/64 94 07/25/16 05:30 99.4 92 16 92/53 93 07/25/16 00:45 97.3 99 16 97/50 93 07/24/16 21:00 98.5 98 16 92/56 93 07/24/16 16:00 97.8 106 16 102/58 96 07/24/16 15:21 95 Nasal Cannula 3.00 I/O 07/24/16 07/24/16 07/24/16 07/25/16 07/25/16 07/25/16 07:00 15:00 23:00 07:00 15:00 23:00 Intake Total 2599 ml 1417 ml Output Total 300 ml Balance 2599 ml 1117 ml Intake Oral 480 ml IV Total 2119 ml 1417 ml Output Urine Total 300 ml # Voids 1 4 # Bowel Movements 4 2 2 Result Diagram: 07/25/16 0500 07/25/16 0500 Objective Remarks Not in distress, very forgetful, appears sick. PERRL, pale conjunctiva without injection, anicteric Nose without bleeding, airway patent Supple neck, no masses or thyromegaly, trachea midline Tachycardic, regular rhythm, no murmurs. Clear to auscultation and symmetric bilaterally, normal respiratory effort. Normal bowel sounds, soft, non-tender, mildly distended, no guarding. Extremities without clubbing, cyanosis, or edema. No rash of generalized distribution. Skin is warm and dry. Alert, awake, oriented to self but not to time. Moves extremities. A/P Assessment and Plan This is a 51-year-old female with history of stage IV breast cancer presenting with abdominal pain and diarrhea Abdominal pain with diarrhea - patient with leukocytosis but better, also with dark stools, rule out GI bleed and infectious diarrhea. CT scan of the abdomen personally reviewed showed diffuse metastatic disease, but unremarkable abdomen otherwise. Mild bibasilar infiltrates. Cont Flagyl for now, continue IVF. Occult blood positive. Continue Protonix. F/u stool studies and C diff assay. Start [place] for pain. Rule out GI bleed-stool occult positive, hemoglobin decreased, monitor for now. Continue Protonix drip for now. Check H/H q12 Stage IV breast cancer-metastatic to liver, brain, thoracic and lumbar spine, lungs. Consult Oncology specially for prognosis. Mild troponin elevation-troponin is 0.07, EKG personally reviewed showed sinus tachycardia, Trop flat and has normalized. Patient denies any chest pain Bibasilar infiltrates lower lobes-could be from atelectasis, patient denies any shortness of breath, incentive spirometry, DuoNeb's. Hypocalcemia-replaced Hypokalemia-replaced, recheck BMP tomorrow and magnesium. Hypocalcemia-replace DVT prophylaxis: Pharmacological prophylaxis contraindicated until GI bleed is ruled out,SCDs for now Discussed extensively with the patient's sister Zunilda, who sort of a greetings insinuated that patient should have a DNR/DNI order. I then spoke to the next of kin Irvin [phone], he is coming on Friday and would be willing to . palliative care. He agreed the patient should be DNR/DNI at this point. He believes that she has suffered enough and agreed with Zunilda that patient has suffered enough and would not want to be resuscitated but he wants to continue to be aggressive with care for now until talking with the palliative care team on Friday. Positive care following, to speak with patient' s tomorrow. DNR/DNI Shahida Mares MD Jul 25, 2016 15:18
[2016-07-25] MEDS: POTASSIUM CHLOR 20 MEQ PREMIX 100 ML IV SCH ×2 (16:01→18:14)
[2016-07-25] MEDS: CEFEPIME INJ 1,000 MG in SODIUM CHLORIDE 0.9% INJ 100 ML IV SCH (16:01)
[2016-07-25] MEDS ORDERED: CALCIUM GLUCONATE INJ 1 GM in SODIUM CHLORIDE 0.9% INJ 100 ML IV ONE (17:00)
[2016-07-25] MEDS: ACETAMINOPHEN/HYDROcodone 325 MG/5 MG TAB PO PRN (18:14)
[2016-07-26] VITALS (8 sets, daily range): BP systolic 96–113; BP diastolic 59–80; PULSE 88–114; RESP 16–20; TEMP 97.4–100.3; O2SAT 87–95
[2016-07-26] MEDS: RESP: ALBUTEROL 2.5 MG/IPRATROPIUM 0.5 MG NEB (SCH) NEB ×3 (00:34→16:00)
[2016-07-26 00:35] LABS: HEMATOCRIT 26.7 % (35.0-46.0); REVIEW FLAG FINAL
[2016-07-26] MEDS: PANTOPRAZOLE INJ 80 MG in SODIUM CHLORIDE 0.9% INJ 100 ML IV SCH ×2 (01:35→12:25)
[2016-07-26] MEDS: CEFEPIME INJ 1,000 MG in SODIUM CHLORIDE 0.9% INJ 100 ML IV SCH ×2 (01:36→08:00)
[2016-07-26] MEDS ORDERED: LOPERAMIDE HCL 2 MG CAP PO ONE (02:15)
[2016-07-26] MEDS: SODIUM CHLOR 0.9% 1000 ML INJ 1,000 ML IV SCH ×3 (02:48→22:35)
[2016-07-26] MEDS: ACETAMINOPHEN/HYDROcodone 325 MG/5 MG TAB PO PRN ×2 (03:39→16:54)
[2016-07-26 06:35] LABS: BICARBONATE 22.4 MEQ/L (21.0-32.0); MAGNESIUM 1.9 MG/DL (1.5-2.5); POTASSIUM 3.8 MEQ/L (3.5-5.1)
[2016-07-26 06:50] LABS: AUTOMATED NEUTROPHIL # 4.6 TH/MM3 (1.8-7.7); BASOPHIL % 0.5 % (0.0-2.0); EOSINOPHIL # 0.1 TH/MM3 (0-0.4); EOSINOPHIL % 2.2 % (0.0-4.0); HEMATOCRIT 27.3 % (35.0-46.0); LYMPHOCYTE # 0.5 TH/MM3 (1.0-4.8); MEAN CELL VOLUME 98.7 FL (80.0-100.0); MEAN CORPUSCULAR HEMOGLOBIN 34.7 PG (27.0-34.0); MEAN CORPUSCULAR HGB CONC 35.2 % (32.0-36.0); MONO % 10.1 % (0.0-8.0); NEUT % 78.2 % (16.0-70.0); PLATELET COUNT 132 TH/MM3 (150-450); RED BLOOD COUNT 2.77 MIL/MM3 (4.00-5.30); RED CELL DISTRIBUTION WIDTH 24.3 % (11.6-17.2); WHITE BLOOD COUNT 5.9 TH/MM3 (4.0-11.0)
[2016-07-26 06:51] LABS: CALCIUM-PROTEIN CORRECTED 8.6 MG/DL (8.5-10.1)
[2016-07-26 07:04] LABS: HEMO FLAGS AUTO DIFF
[2016-07-26 07:54] LABS: BANDS 4 % (0-6); CORRECTED NUCLEATED RBC 1 /100 WBC (0-0); EOSINOPHILS 2 % (0-4); METAMYELOCYTES 3 % (0-1); NEUTROPHIL # MANUAL DIFF 4.9 TH/MM3 (1.8-7.7); POLYS (SEG NEUTROPHILS) 76 % (16-70); SCAN/DIFF FINAL DIFF MANUAL; WBC DIFF SAMPLE 100
[2016-07-26 07:55] LABS: PLATELET ESTIMATE SMEAR LOW (NORMAL); PLATELET MORPHOLOGY NORMAL (NORMAL)
[2016-07-26] MEDS: CALCIUM CARBONATE 500 MG CHEWABLE TAB CHEW SCH ×2 (09:25→20:19)
[2016-07-26] MEDS: FAMOTIDINE 20 MG TAB PO SCH (09:26)
--- NOTE | 2016-07-26 10:47 | HHI.HCPN ---
Reason for visit a. To assist with evaluation and management of symptoms including: Pain , Encephalopathy b. To assist medical decision maker(s) with: better understanding of current medical conditions; weighing benefits/burdens of medical treatment options; making medical treatment decisions. , Subjective/Interval History INTERVAL NOTE: The patient seems a little more alert today, but still confused. She remains afebrile, vital signs stable. She gets some Imodium last night and that seems to have slowed the diarrhea. No pain this morning. As per initial consultation note 07/25/16 by Indira Chandler MD: This 51-year-old female was diagnosed with breast cancer in August 2014, and had disease metastatic to lymph nodes, bone, and kidneys at that time. This was found to be HER-2/vannesa overexpressing breast cancer, and she underwent chemotherapy including Herceptin. The says he was told that she was " in remission for a year" but then developed neurologic symptoms in April 2016 and was found to have multiple brain metastases. She then underwent whole brain radiation, completing that on 05/14/16. She followed up with her oncologist Dr. Lynch through the end of May, but then was to be referred to a new oncologist due to insurance changes but had never followed up. She had remained on some oral chemotherapeutic agents, and had gradually been getting weaker. Over the few days prior to admission, she seemed to have more confusion, and continued to lose strength, becoming (according to her close friend Zunilda) nonambulatory in the couple days prior to this admission. She was more confused and was finally brought to the emergency department on 07/23/15, complaining of abdominal pain and a couple days of watery diarrhea. In the emergency department, findings included: * Confusion, weakness * Initial temp 98.3, but later 101.3 * Pulse 124, respirations 19, blood pressure 95/69, oxygen saturation 94% on 2 L * White count 11.6, hemoglobin 14.3 * Sodium 138, creatinine 0.68, albumin 2.8 * Lactic acid 2.2 * The diarrhea was found to be Hemoccult positive * Chest x-ray consistent with bilateral infiltrates * Abdomen/pelvis CT scan revealed the bony metastases in the spine but no other obvious abnormalities The patient's tells me that the patient had an MRI done of the brain a couple weeks ago, and I have obtained that report from radiation oncology: MRI brain, 07/10/16: "Multiple enhancing masses throughout both cerebral and cerebellar hemispheres consistent with metastatic disease. The largest lesion on the right is within the thalamus measuring 1.7 x 1.3 cm, crossing the midline. The largest lesion on the left involves the occipital lobe, measuring 1.6 x 1.4 cm. There is associated edema with the lesions, mild. No midline shift." The patient was admitted, cultures were obtained, and she was started on antibiotics. Up to this point in time, the blood cultures and stool tests have been negative. The patient has denied abdominal pain in the past 24 hours, but remains quite forgetful and confused at times. Oncology Dr. Figueroa saw the patient last evening, and has consulted Palliative Care. The nurse reports that friends and the have made comments about "she has suffered enough, " and Palliative Care will now assist with symptom management and enter in discussions with the family and friends regarding prognosis and the benefits and burdens of the various treatment options. . Family/friend interactions drove from [place] last night, and met me at the patient's room this morning. In light of her advanced disease and her decreasing strength and worsening confusion, he requests that we transition to comfort care and ask hospice to come and see the patient. He hopes to get her home soon. . Advance Directives Living Will: Never completed Health Care Surrogate: Never completed Durable Power of Aquatic Director: Never completed Objective Vital Signs Date Time Temp Pulse Resp B/P Pulse Ox O2 Delivery O2 Flow Rate FiO2 07/26/16 08:14 87 21 07/26/16 04:00 97.9 102 18 113/80 94 07/26/16 00:00 99.2 88 18 107/71 95 07/25/16 20:00 100.1 90 24 106/72 94 07/25/16 19:57 16 07/25/16 16:00 99.1 89 16 99/61 90 07/25/16 13:08 84 07/25/16 12:00 96.9 94 16 109/68 91 Intake & Output 07/26/16 07/26/16 07:00 19:00 Intake Total 240 ml Output Total 3000 ml Balance -2760 ml Intake Oral 240 ml Output Urine Total 3000 ml # Voids 2 # Bowel Movements 2 Physical Exam CONSTITUTIONAL/GENERAL: This is a week patient, in no apparent distress. TUBES/LINES/DRAINS: Peripheral IV SKIN: No jaundice, rashes, or lesions. Ecchymoses on upper extremities. No wounds seen anteriorly. Skin temperature appropriate. Not diaphoretic. NECK: Trachea midline. Supple, nontender. No palpable thyroid enlargement or nodularity. CARDIOVASCULAR: Regular rate and rhythm without murmurs, gallops, or rubs. No JVD. Peripheral pulses symmetric. RESPIRATORY/CHEST: Symmetric, unlabored respirations. A few scattered rhonchi bilateral. GASTROINTESTINAL: Abdomen soft, non-tender, nondistended. No hepato-splenomegaly , or palpable masses. No guarding. Bowel sounds present. GENITOURINARY: Without palpable bladder distension. MUSCULOSKELETAL: Extremities without clubbing, cyanosis, or edema. No joint tenderness or effusion noted. No calf tenderness. No mottling or clubbing. NEUROLOGICAL: Awake and alert. Her speech is clear, but she is confused, disoriented. Follows simple commands. Moves all 4 extremities. PSYCHIATRIC: No obvious anxiety/depression. no apparent hallucinations or other psychotic thought process. . Diagnostic Tests Laboratory Laboratory Tests Test 07/23/16 07/23/16 07/23/16 07/23/16 13:15 15:00 18:05 19:15 White Blood Count 11.6 TH/MM3 (4.0-11.0) Red Blood Count 4.24 MIL/MM3 (4.00-5.30) Hemoglobin 14.3 GM/DL (11.6-15.3) Hematocrit 41.3 % (35.0-46.0) Mean Corpuscular Volume 97.4 FL (80.0-100.0) Mean Corpuscular Hemoglobin 33.7 PG (27.0-34.0) Mean Corpuscular Hemoglobin 34.6 % Concent (32.0-36.0) Red Cell Distribution Width 22.6 % (11.6-17.2) Platelet Count 146 TH/MM3 (150-450) Mean Platelet Volume 8.0 FL (7.0-11.0) Neutrophils (%) (Auto) 75.6 % (16.0-70.0) Lymphocytes (%) (Auto) 13.5 % (9.0-44.0) Monocytes (%) (Auto) 10.1 % (0.0-8.0) Eosinophils (%) (Auto) 0.4 % (0.0-4.0) Basophils (%) (Auto) 0.4 % (0.0-2.0) Neutrophils # (Auto) 8.8 TH/MM3 (1.8-7.7) Lymphocytes # (Auto) 1.6 TH/MM3 (1.0-4.8) Monocytes # (Auto) 1.2 TH/MM3 (0-0.9) Eosinophils # (Auto) 0.0 TH/MM3 (0-0.4) Basophils # (Auto) 0.0 TH/MM3 (0-0.2) CBC Comment AUTO DIFF Differential Total Cells 100 Counted Neutrophils % (Manual) 85 % (16-70) Lymphocytes % 6 % (9-44) Monocytes % 5 % (0-8) Neutrophils # (Manual) 10.3 TH/MM3 (1.8-7.7) Myelocytes 4 % (0-0) Differential Comment FINAL DIFF MANUAL Platelet Estimate LOW (NORMAL) Platelet Morphology Comment NORMAL (NORMAL) Prothrombin Time 14.0 SEC (9.8-11.6) Prothromb Time International 1.3 RATIO Ratio Activated Partial 27.4 SEC Thromboplast Time (24.3-30.1) Sodium Level 138 MEQ/L (136-145) Potassium Level 3.0 MEQ/L (3.5-5.1) Chloride Level 104 MEQ/L (98-107) Carbon Dioxide Level 20.8 MEQ/L (21.0-32.0) Anion Gap 13 MEQ/L (5-15) Blood Urea Nitrogen 19 MG/DL (7-18) Creatinine 0.68 MG/DL (0.50-1.00) Estimat Glomerular Filtration 91 ML/MIN (>89) Rate Random Glucose 124 MG/DL (74-106) Lactic Acid Level 2.2 mmol/L 0.9 mmol/L (0.4-2.0) (0.4-2.0) Calcium Level 7.7 MG/DL (8.5-10.1) Total Bilirubin 2.0 MG/DL (0.2-1.0) Aspartate Amino Transf 23 U/L (15-37) (AST/SGOT) Alanine Aminotransferase 29 U/L (10-53) (ALT/SGPT) Alkaline Phosphatase 65 U/L (45-117) Total Creatine Kinase 19 U/L (26-192) Troponin I 0.07 NG/ML 0.06 NG/ML (0.02-0.05) (0.02-0.05) Total Protein 5.8 GM/DL (6.4-8.2) Albumin 2.8 GM/DL (3.4-5.0) Lipase 130 U/L (73-393) Blood Type AB POSITIVE Antibody Screen NEGATIVE Urine Color YELLOW (YELLW/STRAW) Urine Turbidity HAZY (CLEAR) Urine pH 5.5 (5.0-8.5) Urine Specific [place] 1.029 (1.002-1.035) Urine Protein 100 mg/dL (NEG-TRACE) Urine Glucose (UA) NEG mg/dL (NEG) Urine Ketones NEG mg/dL (NEG) Urine Occult Blood SMALL (NEG) Urine Nitrite NEG (NEG) Urine Bilirubin NEG (NEG) Urine Urobilinogen LESS THAN 2.0 MG/DL (LESS THAN 2.0) Urine Leukocyte Esterase NEG (NEG) Urine RBC 1 /hpf (0-3) Urine WBC 2 /hpf (0-5) Urine Squamous Epithelial <1 /hpf (0-5) Cells Urine Bacteria RARE /hpf (NONE) Urine Mucus FEW /lpf (OCC) Microscopic Urinalysis Comment CULT NOT INDICATED Test 07/23/16 07/24/16 07/24/16 07/25/16 23:42 04:00 15:03 05:00 Troponin I 0.05 NG/ML (0.02-0.05) White Blood Count 6.3 TH/MM3 4.8 TH/MM3 (4.0-11.0) (4.0-11.0) Red Blood Count 3.04 MIL/MM3 2.53 MIL/MM3 (4.00-5.30) (4.00-5.30) Hemoglobin 10.5 GM/DL 9.6 GM/DL 9.0 GM/DL (11.6-15.3) (11.6-15.3) (11.6-15.3) Hematocrit 29.7 % 27.0 % 24.6 % (35.0-46.0) (35.0-46.0) (35.0-46.0) Mean Corpuscular Volume 97.7 FL 97.1 FL (80.0-100.0) (80.0-100.0) Mean Corpuscular Hemoglobin 34.7 PG 35.5 PG (27.0-34.0) (27.0-34.0) Mean Corpuscular Hemoglobin 35.5 % 36.5 % Concent (32.0-36.0) (32.0-36.0) Red Cell Distribution Width 23.6 % 23.9 % (11.6-17.2) (11.6-17.2) Platelet Count 105 TH/MM3 108 TH/MM3 (150-450) (150-450) Mean Platelet Volume 8.1 FL 7.9 FL (7.0-11.0) (7.0-11.0) Neutrophils (%) (Auto) 78.5 % 77.1 % (16.0-70.0) (16.0-70.0) Lymphocytes (%) (Auto) 11.3 % 10.1 % (9.0-44.0) (9.0-44.0) Monocytes (%) (Auto) 7.5 % (0.0-8.0) 9.7 % (0.0-8.0) Eosinophils (%) (Auto) 2.2 % (0.0-4.0) 2.5 % (0.0-4.0) Basophils (%) (Auto) 0.5 % (0.0-2.0) 0.6 % (0.0-2.0) Neutrophils # (Auto) 4.9 TH/MM3 3.7 TH/MM3 (1.8-7.7) (1.8-7.7) Lymphocytes # (Auto) 0.7 TH/MM3 0.5 TH/MM3 (1.0-4.8) (1.0-4.8) Monocytes # (Auto) 0.5 TH/MM3 0.5 TH/MM3 (0-0.9) (0-0.9) Eosinophils # (Auto) 0.1 TH/MM3 0.1 TH/MM3 (0-0.4) (0-0.4) Basophils # (Auto) 0.0 TH/MM3 0.0 TH/MM3 (0-0.2) (0-0.2) CBC Comment AUTO DIFF AUTO DIFF Differential Total Cells 100 100 Counted Neutrophils % (Manual) 83 % (16-70) 74 % (16-70) Band Neutrophils % 1 % (0-6) 4 % (0-6) Lymphocytes % 8 % (9-44) 7 % (9-44) Monocytes % 5 % (0-8) 11 % (0-8) Eosinophils % 2 % (0-4) 1 % (0-4) Neutrophils # (Manual) 5.4 TH/MM3 3.9 TH/MM3 (1.8-7.7) (1.8-7.7) Metamyelocytes 1 % (0-1) 2 % (0-1) Differential Comment FINAL DIFF FINAL DIFF MANUAL MANUAL Platelet Estimate LOW (NORMAL) LOW (NORMAL) Platelet Morphology Comment NORMAL NORMAL (NORMAL) (NORMAL) Keratocytes OCC (NORMAL) Stool C. difficile Toxin (PCR) NEGATIVE (NEGATIVE) Stl C. difficile Toxin PRESUMPTIVE Epiderm 027 NEGATIVE (NEGATIVE) Sodium Level 144 MEQ/L 143 MEQ/L (136-145) (136-145) Potassium Level 3.3 MEQ/L 2.9 MEQ/L (3.5-5.1) (3.5-5.1) Chloride Level 114 MEQ/L 113 MEQ/L (98-107) (98-107) Carbon Dioxide Level 20.4 MEQ/L 20.8 MEQ/L (21.0-32.0) (21.0-32.0) Anion Gap 10 MEQ/L (5-15) 9 MEQ/L (5-15) Blood Urea Nitrogen 9 MG/DL (7-18) 2 MG/DL (7-18) Creatinine 0.31 MG/DL 0.23 MG/DL (0.50-1.00) (0.50-1.00) Estimat Glomerular Filtration 224 ML/MIN 316 ML/MIN Rate (>89) (>89) Random Glucose 100 MG/DL 89 MG/DL (74-106) (74-106) Calcium Level 6.4 MG/DL 6.2 MG/DL (8.5-10.1) (8.5-10.1) Protein Corrected Calcium 7.7 MG/DL 7.6 MG/DL (8.5-10.1) (8.5-10.1) Magnesium Level 2.2 MG/DL (1.5-2.5) Total Protein 4.5 GM/DL 4.3 GM/DL (6.4-8.2) (6.4-8.2) Myelocytes 1 % (0-0) Prothrombin Time 14.5 SEC (9.8-11.6) Prothromb Time International 1.3 RATIO Ratio Activated Partial 28.6 SEC Thromboplast Time (24.3-30.1) Fibrinogen 302 mg/dL (181-393) Test 07/25/16 07/26/16 22:50 05:00 Hemoglobin 9.5 GM/DL 9.6 GM/DL (11.6-15.3) (11.6-15.3) Hematocrit 26.7 % 27.3 % (35.0-46.0) (35.0-46.0) White Blood Count 5.9 TH/MM3 (4.0-11.0) Red Blood Count 2.77 MIL/MM3 (4.00-5.30) Mean Corpuscular Volume 98.7 FL (80.0-100.0) Mean Corpuscular Hemoglobin 34.7 PG (27.0-34.0) Mean Corpuscular Hemoglobin 35.2 % Concent (32.0-36.0) Red Cell Distribution Width 24.3 % (11.6-17.2) Platelet Count 132 TH/MM3 (150-450) Mean Platelet Volume 7.8 FL (7.0-11.0) Neutrophils (%) (Auto) 78.2 % (16.0-70.0) Lymphocytes (%) (Auto) 9.0 % (9.0-44.0) Monocytes (%) (Auto) 10.1 % (0.0-8.0) Eosinophils (%) (Auto) 2.2 % (0.0-4.0) Basophils (%) (Auto) 0.5 % (0.0-2.0) Neutrophils # (Auto) 4.6 TH/MM3 (1.8-7.7) Lymphocytes # (Auto) 0.5 TH/MM3 (1.0-4.8) Monocytes # (Auto) 0.6 TH/MM3 (0-0.9) Eosinophils # (Auto) 0.1 TH/MM3 (0-0.4) Basophils # (Auto) 0.0 TH/MM3 (0-0.2) CBC Comment AUTO DIFF Differential Total Cells 100 Counted Neutrophils % (Manual) 76 % (16-70) Band Neutrophils % 4 % (0-6) Lymphocytes % 10 % (9-44) Monocytes % 5 % (0-8) Eosinophils % 2 % (0-4) Neutrophils # (Manual) 4.9 TH/MM3 (1.8-7.7) Metamyelocytes 3 % (0-1) Nucleated Red Blood Cells 1 /100 WBC (0-0) Differential Comment FINAL DIFF MANUAL Platelet Estimate LOW (NORMAL) Platelet Morphology Comment NORMAL (NORMAL) Basophilic Stippling FAINT (NORMAL) Sodium Level 142 MEQ/L (136-145) Potassium Level 3.8 MEQ/L (3.5-5.1) Chloride Level 111 MEQ/L (98-107) Carbon Dioxide Level 22.4 MEQ/L (21.0-32.0) Anion Gap 9 MEQ/L (5-15) Blood Urea Nitrogen 2 MG/DL (7-18) Creatinine 0.23 MG/DL (0.50-1.00) Estimat Glomerular Filtration 316 ML/MIN Rate (>89) Random Glucose 92 MG/DL (74-106) Calcium Level 7.2 MG/DL (8.5-10.1) Protein Corrected Calcium 8.6 MG/DL (8.5-10.1) Magnesium Level 1.9 MG/DL (1.5-2.5) Total Protein 4.6 GM/DL (6.4-8.2) Result Diagram: 07/26/16 0500 07/26/16 0500 Microbiology Microbiology Date/Time Procedure Status Source Growth 07/23/16 14:00 Aerobic Blood Culture - Preliminary Resulted Blood Peripheral NO GROWTH IN 2 DAYS 07/23/16 14:00 Anaerobic Blood Culture - Preliminary Resulted Blood Peripheral NO GROWTH IN 2 DAYS 07/23/16 14:35 Aerobic Blood Culture - Preliminary Resulted Blood Peripheral NO GROWTH IN 2 DAYS 07/23/16 14:35 Anaerobic Blood Culture - Preliminary Resulted Blood Peripheral NO GROWTH IN 2 DAYS 07/24/16 04:00 Rotavirus Antigen - Final Complete Stool Stool NEGATIVE - ROTAVIRUS ANTIGEN IS ABSEN... 07/24/16 04:00 - Final Complete Stool Stool NO ENTERIC PATHOGENS DETECTED BY PCR... 07/24/16 04:00 Cyclospora Exam Resulted Stool Stool Pending 07/24/16 04:00 Cryptosporidium Exam - Final Resulted Stool Stool NEGATIVE - NO CRYPTOSPORIDIUM ANTIGEN... 07/24/16 04:00 Stool Pus (ANDREA) - Final Resulted Stool Stool RARE WBC 07/24/16 04:00 Giardia Antigen (ANDREA) - Final Resulted Stool Stool NEGATIVE - NO GIARDIA ANTIGEN DETECTE... Assessment and Plan Disease Oriented Problem List: (1) stage IV, HER2/vannesa overexpressing breast cancer, with bone, kidney, lymph node, and brain metastases (2) pneumonia, sepsis (3) encephalopathy, likely due to medications, sepsis, multiple brain metastases , and recent radiation (4) chronic back pain due to metastatic disease (5) Hemoccult-positive diarrheal stool (6) anxiety, history of panic attacks Symptom Scale: (1) encephalopathy 0-10 Scale: 5 (persistent confusion, poor memory, poor insight) (2) pain 0-10 Scale: 3 (primarily back pain) (3) anxiety 0-10 Scale: Unable to quantify (intermittent) Pertinent Non-Medical Issues Psychosocial: From [place], for 17 years, no children but 2 stepchildren. Spiritual: Unaffiliated [employer] Legal: The patient is consistently confused, and does not have capacity for decision making at this time. Her Irvin is the proxy decision-maker. Ethical issues impacting care: None. . Important Contacts : Irvin [phone] Close friend: Zunilda Dean [phone] . Prognosis The patient is terminal. She has been declining recently, and now has an even more significant setback with pneumonia/sepsis. Her MRI from 07/10/16 confirms persistent/residual brain metastatic disease, and the CT scan on this admission again demonstrates bony metastases area. Certainly she is appropriate for hospice services if the goals transition to a focus on comfort. . Code Status: No Code Plan * DO NOT RESUSCITATE * GOALS: The patient is too confused and forgetful to discuss prognosis and goals of care at this time. The patient's friend Zunilda said "I think she has suffered enough." The patient's Irvin is now requesting hospice services, noting that the patient has been telling him the last month or 2 that she did not want to take any more chemotherapy and she just wanted to rest. * DECISION-MAKING: The patient is consistently confused, and does not have capacity for decision making at this time. Her Irvin is the proxy decision-maker. * From [facility]: MRI brain, 07/10/16: "Multiple enhancing masses throughout both cerebral and cerebellar hemispheres consistent with metastatic disease. The largest lesion on the right is within the thalamus measuring 1.7 x 1.3 cm, crossing the midline. The largest lesion on the left involves the occipital lobe, measuring 1.6 x 1.4 cm. There is associated edema with the lesions, mild. No midline shift." * SYMPTOMS: Her encephalopathy does not seem to be improving, but her treatment has just begun here the past couple days. Pain seems to be fairly well managed now. No new medication recommendations. * Palliative Care will continue to follow the patient during this hospitalization. * HOSPICE consulted. . Time Spent Total Floor Time (mins): 39 Face to Face Time (mins): 22 >50% Counseling/Coord of Care: Yes Attestation To help prompt me to consider important information that might be impacting today's encounter and assessment, information from prior notes written by myself or my colleagues may have been "brought forward" into today's note. My signature on this note, however, is an attestation that I personally performed the exam, history, and/or decision-making noted today, and, unless otherwise indicated, the interactions with patient, family, and staff as well as the review of records all occurred today. I also attest that the listed assessment and stated plan reflect my best clinical judgment today based on the combination of historical information, prior notes, and today's exam/ interactions. When time spent is documented, it refers only to time spent today by the signer, or if indicated, combined time spent today by collaborating physician/nurse practitioner. Jillian Chandler MD Jul 26, 2016 10:47
--- NOTE | 2016-07-26 12:52 | PD.ONC.PN ---
Subjective Subjective Remarks Tmax 100.1 overnight. Patient feeling very fatigued. at bedside. He states she has been tired today. they have decided not to pursue any further treatment. Objective Data Date Time Temp Pulse Resp B/P Pulse Ox O2 Delivery O2 Flow Rate FiO2 07/26/16 08:14 87 21 07/26/16 08:00 98.9 91 18 96/59 93 07/26/16 04:00 97.9 102 18 113/80 94 07/26/16 00:00 99.2 88 18 107/71 95 07/25/16 20:00 100.1 90 24 106/72 94 07/25/16 19:57 16 07/25/16 16:00 99.1 89 16 99/61 90 07/25/16 13:08 84 07/26/16 07/26/16 07/26/16 07:00 15:00 23:00 Intake Total 0 ml Output Total 3000 ml Balance -3000 ml Result Diagram: 07/26/16 0500 07/26/16 0500 Laboratory Results Laboratory Tests Test 07/25/16 07/26/16 22:50 05:00 Hemoglobin 9.5 GM/DL 9.6 GM/DL Hematocrit 26.7 % 27.3 % White Blood Count 5.9 TH/MM3 Red Blood Count 2.77 MIL/MM3 Mean Corpuscular Volume 98.7 FL Mean Corpuscular Hemoglobin 34.7 PG Mean Corpuscular Hemoglobin 35.2 % Concent Red Cell Distribution Width 24.3 % Platelet Count 132 TH/MM3 Mean Platelet Volume 7.8 FL Neutrophils (%) (Auto) 78.2 % Lymphocytes (%) (Auto) 9.0 % Monocytes (%) (Auto) 10.1 % Eosinophils (%) (Auto) 2.2 % Basophils (%) (Auto) 0.5 % Neutrophils # (Auto) 4.6 TH/MM3 Lymphocytes # (Auto) 0.5 TH/MM3 Monocytes # (Auto) 0.6 TH/MM3 Eosinophils # (Auto) 0.1 TH/MM3 Basophils # (Auto) 0.0 TH/MM3 CBC Comment AUTO DIFF Differential Total Cells 100 Counted Neutrophils % (Manual) 76 % Band Neutrophils % 4 % Lymphocytes % 10 % Monocytes % 5 % Eosinophils % 2 % Neutrophils # (Manual) 4.9 TH/MM3 Metamyelocytes 3 % Nucleated Red Blood Cells 1 /100 WBC Differential Comment FINAL DIFF MANUAL Platelet Estimate LOW Platelet Morphology Comment NORMAL Basophilic Stippling FAINT Sodium Level 142 MEQ/L Potassium Level 3.8 MEQ/L Chloride Level 111 MEQ/L Carbon Dioxide Level 22.4 MEQ/L Anion Gap 9 MEQ/L Blood Urea Nitrogen 2 MG/DL Creatinine 0.23 MG/DL Estimat Glomerular Filtration 316 ML/MIN Rate Random Glucose 92 MG/DL Calcium Level 7.2 MG/DL Protein Corrected Calcium 8.6 MG/DL Magnesium Level 1.9 MG/DL Total Protein 4.6 GM/DL Culture Results Microbiology Date/Time Procedure Status Source Growth 07/23/16 14:00 Aerobic Blood Culture - Preliminary Resulted Blood Peripheral NO GROWTH IN 3 DAYS 07/23/16 14:00 Anaerobic Blood Culture - Preliminary Resulted Blood Peripheral NO GROWTH IN 3 DAYS 07/23/16 14:35 Aerobic Blood Culture - Preliminary Resulted Blood Peripheral NO GROWTH IN 3 DAYS 07/23/16 14:35 Anaerobic Blood Culture - Preliminary Resulted Blood Peripheral NO GROWTH IN 3 DAYS 07/24/16 04:00 Rotavirus Antigen - Final Complete Stool Stool NEGATIVE - ROTAVIRUS ANTIGEN IS ABSEN... 07/24/16 04:00 - Final Complete Stool Stool NO ENTERIC PATHOGENS DETECTED BY PCR... 07/24/16 04:00 Cyclospora Exam Resulted Stool Stool Pending 07/24/16 04:00 Cryptosporidium Exam - Final Resulted Stool Stool NEGATIVE - NO CRYPTOSPORIDIUM ANTIGEN... 07/24/16 04:00 Stool Pus (ANDREA) - Final Resulted Stool Stool RARE WBC 07/24/16 04:00 Giardia Antigen (ANDREA) - Final Resulted Stool Stool NEGATIVE - NO GIARDIA ANTIGEN DETECTE... Administered Medications Medications (Trade) Dose Ordered Sig/Harsha Route PRN Reason Start Time Stop Time Status Last Admin Dose Admin IV Flush 2 ml 2 ml UNSCH PRN IVF FLUSH AFTER USING IV ACCESS 07/23/16 13:00 07/26/16 09:25 Pantoprazole Sodium/Sodium Chloride (Protonix Inj/NS Inj) 100 ml @ 10 mls/hr Q10H IV 07/23/16 13:15 07/26/16 12:25 Famotidine (Pepcid) 20 mg Q12HR PO 07/23/16 22:30 07/26/16 09:26 Ondansetron HCl (Zofran Inj) 4 mg Q6HR PRN IV PUSH nausea 07/23/16 22:30 07/25/16 01:34 Acetaminophen 650 mg 650 mg Q4H PRN PO fever >101 07/23/16 22:30 07/24/16 13:13 Sodium Chloride (NS 1000 ml Inj) 1,000 ml @ 100 mls/hr Q10H IV 07/24/16 11:00 07/26/16 12:26 Calcium Carbonate (Tums Chew) 500 mg Q12HR CHEW 07/24/16 21:00 07/26/16 09:25 Acetaminophen/ Hydrocodone Bitart 1 tab 1 tab Q4H PRN PO pain 3-10 07/25/16 15:15 07/26/16 03:39 Cefepime HCl/ Sodium Chloride (Maxipime Inj/NS Inj) 100 ml @ 200 mls/hr Q8H IV 07/25/16 16:00 07/26/16 08:00 Objective Remarks GENERAL: Chronically ill appearing female, lying in bed, sleeping on approach SKIN: Warm and dry. + alopecia. HEAD: Normocephalic. EYES: No injection or drainage. NECK: Supple, trachea midline. CARDIOVASCULAR: Regular rate and rhythm RESPIRATORY: Breath sounds equal bilaterally. No accessory muscle use. GASTROINTESTINAL: Abdomen soft, non-tender, nondistended. EXTREMITIES: No cyanosis Assessment/Plan Problem List: (1) Metastatic breast cancer Status: Chronic Plan: -- hold chemotherapy for now until toxicities resolve. 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 --completed 8 cycles of chemotherapy with Herceptin. --January 2016 she presented to the emergency room with [employer] metastatic disease. MRI brain showed numerous enhancing intra-axial masses seen in both cerebral hemispheres compatible with metastatic disease. --completed whole brain radiation on May 14, 2016. has since been taking Tykerb and Xeloda. She has been having some toxicity related to these meds and has not been able to followup with anyone since the [facility] oncology practice has closed. Assessment 51 y/o female with a history of metastatic breast cancer who presents to the ER with c/o abdominal pain. Plan 1. agree with hospice consult 2. continue supportive care 3. will consult case management for assistance, apparently patient's insurance is not valid and she cannot go on hospice without insurance. Attending Statement The exam, history, and the medical decision-making described in the above note were completed with the assistance of the mid-level provider. I reviewed and agree with the findings presented. I attest that I had a [id number] encounter with the patient on the same day, and personally performed and documented my assessment and findings in the medical record. Pt seen and examined. Resting quietly. Noted patient and family decision to proceed with hospice care. Support this decision. Continue comfort measures. Appreciate palliative care consult. Shelley Webster Jul 26, 2016 12:51 Leticia Figueroa MD Jul 26, 2016 18:39
--- NOTE | 2016-07-26 15:07 | HHI.PR ---
Subjective Remarks Follow-up for diarrhea and hypotension Blood pressure is more stable, patient is more awake. Denies any abdominal pain or shortness of breath. Afebrile. Patient still having soft stools, less frequent. Objective Vitals Vital Signs Date Time Temp Pulse Resp B/P Pulse Ox O2 Delivery O2 Flow Rate FiO2 07/26/16 08:14 87 21 07/26/16 08:00 98.9 91 18 96/59 93 07/26/16 04:00 97.9 102 18 113/80 94 07/26/16 00:00 99.2 88 18 107/71 95 07/25/16 20:00 100.1 90 24 106/72 94 07/25/16 19:57 16 07/25/16 16:00 99.1 89 16 99/61 90 I/O 07/25/16 07/25/16 07/25/16 07/26/16 07/26/16 07/26/16 07:00 15:00 23:00 07:00 15:00 23:00 Intake Total 1417 ml 240 ml 1366 ml 0 ml Output Total 300 ml 400 ml 400 ml 3000 ml Balance 1117 ml -160 ml 966 ml -3000 ml Intake Oral 240 ml 240 ml 0 ml IV Total 1417 ml 1126 ml Output Urine Total 300 ml 400 ml 400 ml 3000 ml # Voids 2 # Bowel Movements 2 2 2 1 Result Diagram: 07/26/16 0500 07/26/16 0500 Objective Remarks Not in distress, very forgetful, appears sick. PERRL, pale conjunctiva without injection, anicteric Nose without bleeding, airway patent Supple neck, no masses or thyromegaly, trachea midline Regular rate and rhythm. Clear to auscultation and symmetric bilaterally, normal respiratory effort. Normal bowel sounds, soft, non-tender, mildly distended, no guarding. Extremities without clubbing, cyanosis, or edema. No rash of generalized distribution. Skin is warm and dry. Alert, awake, oriented to self but not to time. Moves extremities. A/P Assessment and Plan This is a 51-year-old female with history of stage IV breast cancer presenting with abdominal pain and diarrhea Abdominal pain with diarrhea - patient with leukocytosis but better, also with dark stools. CT scan of the abdomen personally reviewed showed diffuse metastatic disease, but unremarkable abdomen otherwise. Mild bibasilar infiltrates. Occult blood positive, hemoglobin stable. Patient's thinking of hospice. Switch Protonix to twice a day. Still with diarrhea, C. difficile assay negative, stool studies negative. Continue [place] for pain, switch antibiotics to Levaquin, continue Flagyl. Rule out GI bleed-stool occult positive, hemoglobin stable, switch Protonix to twice a day. Stage IV breast cancer-metastatic to liver, brain, thoracic and lumbar spine, lungs. Oncology following. Mild troponin elevation-troponin is 0.07, EKG personally reviewed showed sinus tachycardia, Trop flat and has normalized. Patient denies any chest pain Bibasilar infiltrates lower lobes-could be from atelectasis, patient denies any shortness of breath, incentive spirometry, DuoNeb's. Possible pneumonia, on antibiotics, switch cefepime to Levaquin. Hypocalcemia-replaced Hypokalemia-replaced Hypocalcemia-replace DVT prophylaxis: Pharmacological prophylaxis contraindicated until GI bleed is ruled out,SCDs for now DNR/DNI Shahida Mares MD Jul 26, 2016 15:07
[2016-07-26] MEDS ORDERED: LEVOFLOXACIN 750 MG PREMIX INJ 150 ML IV SCH (16:00)
[2016-07-26] MEDS: metroNIDAZOLE 500 MG INJ 100 ML IV SCH ×2 (16:54→22:48)
[2016-07-26] MEDS: PANTOPRAZOLE SOD 40 MG DELAYED RELEASE TAB PO SCH (20:19)
[2016-07-27] VITALS: BP 102/69; PULSE 102; RESP 18; TEMP 97; O2SAT 94
[2016-07-27] MEDS: RESP: ALBUTEROL 2.5 MG/IPRATROPIUM 0.5 MG NEB (SCH) NEB ×2 (02:53→09:15)
[2016-07-27 02:59] VITALS: O2SAT 88
[2016-07-27 04:00] VITALS: BP 106/72; PULSE 115; RESP 18; TEMP 98.1; O2SAT 94
[2016-07-27] MEDS: metroNIDAZOLE 500 MG INJ 100 ML IV SCH (06:02)
[2016-07-27] MEDS: ONDANSETRON HCL 4 MG/2 ML VIAL IV PUSH PRN (06:33)
[2016-07-27 08:00] VITALS: BP 103/74; PULSE 96; RESP 18; TEMP 98; O2SAT 94
[2016-07-27 09:13] VITALS: O2SAT 93
[2016-07-27] MEDS: PANTOPRAZOLE SOD 40 MG DELAYED RELEASE TAB PO SCH (09:28)
[2016-07-27] MEDS: CALCIUM CARBONATE 500 MG CHEWABLE TAB CHEW SCH (09:28)
[2016-07-27 12:00] VITALS: BP 100/65; PULSE 105; RESP 20; TEMP 97.9; O2SAT 91
--- NOTE | 2016-07-27 13:57 | HHI.DS ---
Discharge Summary Admission Date Jul 23, 2016 at 16:37 Discharge Date: Jul 27, 2016 Admitting Diagnosis sepsis, pneumonia, GI bleeding, metastatic cancer (1) pneumonia, sepsis Diagnosis: Principal (2) stage IV, HER2/vannesa overexpressing breast cancer, with bone, kidney, lymph node, and brain metastases Diagnosis: Secondary (3) encephalopathy, likely due to medications, sepsis, multiple brain metastases , and recent radiation Diagnosis: Secondary Procedures None Brief History - From Admission This is a 51-year-old female with recently diagnosed breast cancer stage IV metastatic to the brain, lungs, liver and to the thoracic and lumbar spine, presenting to the hospital with abdominal pain and diarrhea. Patient is a very poor historian, she cannot remember why she is here. Of note, patient has been getting chemotherapy but she doesn't know when the last time was. Presently, she denies of any abdominal pain. There is also no note of nausea and vomiting. Presently, she is very forgetful, she cannot even remember that she had diarrhea. Discussed with RN, she had 2 episodes of loose watery dark stools while at the emergency department. CBC/BMP: 07/26/16 0500 07/26/16 0500 Significant Findings Laboratory Tests Test 07/24/16 07/25/16 07/25/16 07/26/16 15:03 05:00 22:50 05:00 Hemoglobin 9.6 GM/DL 9.0 GM/DL 9.5 GM/DL 9.6 GM/DL (11.6-15.3) (11.6-15.3) (11.6-15.3) (11.6-15.3) Hematocrit 27.0 % 24.6 % 26.7 % 27.3 % (35.0-46.0) (35.0-46.0) (35.0-46.0) (35.0-46.0) Red Blood Count 2.53 MIL/MM3 2.77 MIL/MM3 (4.00-5.30) (4.00-5.30) Mean Corpuscular Hemoglobin 35.5 PG 34.7 PG (27.0-34.0) (27.0-34.0) Mean Corpuscular Hemoglobin 36.5 % Concent (32.0-36.0) Red Cell Distribution Width 23.9 % 24.3 % (11.6-17.2) (11.6-17.2) Platelet Count 108 TH/MM3 132 TH/MM3 (150-450) (150-450) Neutrophils (%) (Auto) 77.1 % 78.2 % (16.0-70.0) (16.0-70.0) Monocytes (%) (Auto) 9.7 % (0.0-8.0) 10.1 % (0.0-8.0) Lymphocytes # (Auto) 0.5 TH/MM3 0.5 TH/MM3 (1.0-4.8) (1.0-4.8) Neutrophils % (Manual) 74 % (16-70) 76 % (16-70) Lymphocytes % 7 % (9-44) Monocytes % 11 % (0-8) Metamyelocytes 2 % (0-1) 3 % (0-1) Myelocytes 1 % (0-0) Platelet Estimate LOW (NORMAL) LOW (NORMAL) Prothrombin Time 14.5 SEC (9.8-11.6) Potassium Level 2.9 MEQ/L (3.5-5.1) Chloride Level 113 MEQ/L 111 MEQ/L (98-107) (98-107) Carbon Dioxide Level 20.8 MEQ/L (21.0-32.0) Blood Urea Nitrogen 2 MG/DL (7-18) 2 MG/DL (7-18) Creatinine 0.23 MG/DL 0.23 MG/DL (0.50-1.00) (0.50-1.00) Calcium Level 6.2 MG/DL 7.2 MG/DL (8.5-10.1) (8.5-10.1) Protein Corrected Calcium 7.6 MG/DL (8.5-10.1) Total Protein 4.3 GM/DL 4.6 GM/DL (6.4-8.2) (6.4-8.2) Nucleated Red Blood Cells 1 /100 WBC (0-0) Basophilic Stippling FAINT (NORMAL) PE at Discharge Not in distress, very forgetful, appears sick. PERRL, pale conjunctiva without injection, anicteric Nose without bleeding, airway patent Supple neck, no masses or thyromegaly, trachea midline Regular rate and rhythm. Clear to auscultation and symmetric bilaterally, normal respiratory effort. Normal bowel sounds, soft, non-tender, mildly distended, no guarding. Extremities without clubbing, cyanosis, or edema. No rash of generalized distribution. Skin is warm and dry. Alert, awake, oriented to self but not to time. Moves extremities. Pt update on day of discharge Discussed with . still firm about hospice. Patient denies chest pain or shortness of breath. Diarrhea has improved. Hospital Course This is a 51-year-old female with history of stage IV breast cancer presenting with abdominal pain and diarrhea. Patient was found to have diarrhea of unknown origin. CT scan of the abdomen personally reviewed showed diffuse metastatic disease, but unremarkable abdomen otherwise. Mild bibasilar infiltrates. Occult blood positive, hemoglobin stable. C. difficile assay negative, stool studies negative. Hemoglobin remained stable. Patient also had bibasilar infiltrates lower lobes, likely pneumonia, patient was started on empiric antibiotics and switch to Levaquin. Patient has stage IV breast cancer not doing well, oncology was consulted and agreed with hospice. After insulting palliative care, agreed to hospice. Patient will be discharged to hospice. Discussed with today who said agrees with the plan. Discussed with hospice nurse Pt Condition on Discharge: Guarded Discharge Disposition: Hospice/ Home Discharge Time: > 30 minutes Discharge Instructions DIET: Follow Instructions for: As Tolerated, No Restrictions Activities you can perform: Regular-No Restrictions Shahida Mares MD Jul 27, 2016 13:57
--- NOTE | 2016-08-08 18:38 | PQ ---
Physician Query Response Document PATIENT: FEDERICO RODRIGUEZ : 1965 ADMIT DATE: 07/23/2016 4:37 PM DISCH DATE: 07/27/2016 4:29 PM RESPONDING PROVIDER #: [email or web address] QUERY TEXT: Clinical Validity Additional clinical indicators are required to support your documented diagnosis of Sepsis/Pneumonia Please respond and also state in your next progress note whether: -- Condition exists and also please provide clinical indicators to support the diagnosis -- Condition does not exist and also please provide amended documentation in the medical record to cl winifred -- Unable to provide additional clarity regarding the diagnosis -- Other, please specify The patient's Clinical Indicators include: Sepsis Indicators: Resp Rate greater jones 20, WBC<4000 or > 12,000, Temp < 96 or > 100, heart Rate > 9 0 bpm Discharge summary states: Sepsis Pneumonia Vitals state Resp WBC Blood grew nothing Query created by: Sonia Dunn on 07/31/2016 1:34 PM RESPONSE TEXT: Pt with tachycardia, leukocytosis and pneumonia. Electronically signed by: Shahida Mares MD 08/08/2016 6:34 PM
== END 2016-07-27 16:29 | disposition hospice, home (50) | DRG 597 ==
LOC: NEPC 12:48 → NEDA 16:37 → HOCB 21:31
PROVIDERS: ADMIT Hospitalist; ATTEND Hospitalist
DX: C50.919 Malignant neoplasm of unspecified site of unspecified female breast (principal); J18.9 Pneumonia, unspecified organism; G92 Toxic encephalopathy; C77.9 Secondary and unspecified malignant neoplasm of lymph node, unspecified; C79.31 Secondary malignant neoplasm of brain; C78.7 Secondary malignant neoplasm of liver and intrahepatic bile duct; K92.2 Gastrointestinal hemorrhage, unspecified; C79.51 Secondary malignant neoplasm of bone; K92.1 Melena; R19.7 Diarrhea, unspecified; E86.0 Dehydration; E83.51 Hypocalcemia; R74.8 Abnormal levels of other serum enzymes; T50.905A Adverse effect of unspecified drugs, medicaments and biological substances, initial encounter; E87.6 Hypokalemia; G89.3 Neoplasm related pain (acute) (chronic); Z92.21 Personal history of antineoplastic chemotherapy; M54.9 Dorsalgia, unspecified; F41.9 Anxiety disorder, unspecified; D72.829 Elevated white blood cell count, unspecified
CPT/HCPCS: 71010; 74177; 76937; 80048; 80053; 81001; 82550; 83605; 83690; 83735; 84155; 84484; 85007; 85014; 85018; 85027; 85384; 85610; 85730; 86850; 86900; 86901; 87040; 87205; 87207; 87328; 87329; 87425; 87493; 87506; 93005; 93970; 94640; 94664; 96365; 96366; 96375; C9113; J0610; J0692; J1956; J2270; J2405; J3480; J7030; J7050; Q9967